=== PATIENT | male | born 1955 | race Caucasian/White ===

== ENCOUNTER 2020-01-31 13:05 | Inpatient (IN) | payer MEDICARE, MEDICAID, SELFPAY ==
[2020-01-31] VITALS (15 sets, daily range): BP systolic 92–140; BP diastolic 61–95; PULSE 59–73; RESP 15–22; TEMP 36.3–37; O2SAT 95–98; BMI 28.8
--- NOTE | ~2020-01-31 | CT_ITS ---
EXAMINATION: CTA brain carotid DATE: 01/31/2020 14:31 INDICATION: Cerebrovascular accident. TECHNIQUE: Computed tomographic angiography (CTA) of the head was performed with 100 mL Omnipaque-350 intravenous contrast. CTA of the neck was performed with intravenous contrast. Automated exposure co ntrol and iterative reconstruction technique were employed. The dose-length product was 1268.18 mGy-c m. Maximum intensity projection and volume rendered 3D-reconstructions were created by the technologi st on a separate workstation. COMPARISON: Head CT 01/31/2020 FINDINGS: HEAD CTA: There are old infarcts in the bilateral basal ganglia. There are scattered areas of low att enuation in the cerebral white matter. There is no intracranial hemorrhage, acute infarction, or abno rmal intracranial mass lesion. The ventricles are normal in size. There is a mucous retention cyst in right maxillary sinus. There is mild mucosal thickening in left maxillary sinus. There is extensive dental disease. The mastoid air cells are normal. The orbits are normal. Right vertebral artery is do minant. There is no significant stenosis of basilar artery or the posterior cerebral arteries. The po sterior communicating arteries are normal. There is no significant stenosis of the intracranial inter nal carotid arteries or anterior or middle cerebral arteries. Anterior communicating artery is normal . There is no aneurysm. NECK CTA: There is mild emphysema. There is mild scarring at the lung apices. There are no pathologic ally enlarged lymph nodes. There is no significant stenosis of the vertebral arteries. There is mild plaque in the proximal internal carotid arteries. There is 0% stenosis of the proximal right internal carotid artery relative to normal distal artery lumen diameter (NASCET criteria). There is 0% stenos is of the proximal left internal carotid artery relative to normal distal artery lumen diameter. Ther e is mild cervical spondylosis. IMPRESSION: 1. Old infarcts in the bilateral basal ganglia. 2. Moderate nonspecific cerebral white matter disease, which likely represents chronic small vessel i schemic disease. 3. No aneurysm or significant intracranial arterial stenosis. 4. 0% stenosis of the proximal internal carotid arteries relative to normal distal artery lumen diame ters (NASCET criteria). Reviewed, dictated and finalized at location A. IMPRESSION: 1. Old infarcts in the bilateral basal ganglia. 2. Moderate nonspecific cerebral white matter disease, which likely represents chronic small vessel ischemic disease. 3. No aneurysm or significant intracranial arterial stenosis. 4. 0% stenosis of the proximal internal carotid arteries relative to normal dis cassidy artery lumen diameters (NASCET criteria).
--- NOTE | ~2020-01-31 | US_ITS ---
EXAMINATION: US venous doppler [facility] DATE: 02/01/2020 15:04 INDICATION: Lower limb swelling and weakness TECHNIQUE: Grayscale ultrasound images without and with compression and Doppler ultrasound images of the bilateral lower extremity veins were obtained. COMPARISON: None. FINDINGS: The visualized portions of right common femoral vein, profunda (deep) femoral vein, femoral vein, pop liteal vein, posterior tibial veins, peroneal veins, gastrocnemius vein and greater saphenous vein ou tflow are patent. The visualized portions of left common femoral vein, profunda femoral vein, femoral vein, popliteal v ein, posterior tibial veins, peroneal veins, gastrocnemius vein and greater saphenous vein outflow ar e patent. IMPRESSION: 1. No deep venous thrombosis in either lower limb. Reviewed, dictated and finalized at location A.
--- NOTE | ~2020-01-31 | XR_ITS ---
EXAMINATION: XR barium swallow modified DATE: 02/01/2020 09:32 INDICATION: Dysphagia. TECHNIQUE: The patient was given barium-containing material of multiple consistencies to swallow by t china speech pathologist while I performed fluoroscopy. Fluoroscopy exposure time was 1.4 minutes. The n umber of fluoroscopy images saved to the PACS was 1. Dose-area product was 1.492 Gy-cm^2. FINDINGS: There was no laryngeal penetration or aspiration. IMPRESSION: 1. No laryngeal penetration or aspiration. 2. Please refer to the speech therapy report for recommendations. Reviewed, dictated and finalized at location A.
--- NOTE | ~2020-01-31 | MR_ITS ---
EXAMINATION: MR brain/brain stem wo con EXAM DATE: 01/31/2020 21:20 INDICATION: Encephalopathy. TECHNIQUE: Magnetic resonance imaging (MRI) of the brain/brain stem obtained without contrast. Sagitt al T1, axial diffusion, gradient echo (T2*), T1, T2, FLAIR sequences obtained. Correlation is made t o head CT same date. FINDINGS: There are no areas of restricted diffusion to suggest acute infarction. There is no acute hemorrhage seen on the T2*, a hemosiderin sensitive sequence. No intraparenchymal brain mass lesion. Bilateral basal ganglia old lacunar infarctions. There is mild to moderate periventricular and sub cortical T2/FLAIR signal hyperintensity, nonspecific but probably related to small vessel ischemic di sease (microangiopathy). There is mild prominence of the sulci and ventricles related to cerebral a trophy. There are no extra-axial collections. Flow voids are seen in the cerebral arteries on the T2-weighted sequences consistent with their expected patency. The orbits are unremarkable. Soft tis cecily is unremarkable. Right maxillary sinus mucous retention cyst. IMPRESSION: 1. Old basal ganglia lacunar infarctions. 2. Chronic age related findings. Reviewed, dictated and finalized at location A.
--- NOTE | ~2020-01-31 | XR_ITS ---
EXAMINATION: XR chest 1V DATE: 01/31/2020 14:23 INDICATION: Altered mental status. TECHNIQUE: A single frontal view of the chest was obtained. COMPARISON: None. FINDINGS: Calcified lung nodules and calcified hilar and mediastinal lymph nodes are consistent with old granulomatous disease. There are airspace opacities in right mid and lower lung zones and left lo wer lung zone. There is a small right pleural effusion. No pneumothorax. The heart size is normal. IMPRESSION: 1. Airspace opacities in right mid and lower lung zones and left lower lung zone, consistent with ate lectasis versus pneumonia. 2. Small right pleural effusion. Reviewed, dictated and finalized at location A. IMPRESSION: 1. Airspace opacities in right mid and lower lung zones and left lower lung zon e, consistent with atelectasis versus pneumonia. 2. Small right pleural effusion.
--- NOTE | ~2020-01-31 | CT_ITS ---
EXAMINATION: CT brain wo con DATE: 01/31/2020 13:10 INDICATION: Left hemiparesis. TECHNIQUE: Computed tomography (CT) of the head was performed without intravenous contrast. The mA wa s adjusted according to patient size. Iterative reconstruction technique was employed. The dose-lengt h product was 605.33 mGy-cm. COMPARISON: None FINDINGS: There are scattered areas of low attenuation in the cerebral white matter. There are old in farcts involving the bilateral basal ganglia. There is no intracranial hemorrhage, acute infarction, or abnormal intracranial mass lesion. The ventricles are normal in size. The orbits are normal. There is a mucous retention cyst in right maxillary sinus. The mastoid air cells are normal. There is exte nsive dental disease. There are 2 partially calcified masses in the left parietal scalp with the larg er measuring 14 mm, likely benign. IMPRESSION: 1. Old infarcts involving the bilateral basal ganglia. 2. Moderate nonspecific cerebral white matter disease, which likely represents chronic small vessel i schemic disease. Reviewed, dictated and finalized at location A. IMPRESSION: 1. Old infarcts involving the bilateral basal ganglia. 2. Moderate nonspecific cerebral white matter disease, which likely represents chronic small vessel ischemic disease.
--- NOTE | 2020-01-31 13:19 | ECG_ITS ---
Measurements Intervals Horatio Rate: 65 P: 30 IN: 200 QRS: -8 QRSD: 104 T: 27 QT: 400 QTc: 419 Interpretive Statements SINUS RHYTHM VENTRICULAR PREMATURE COMPLEXES EARLY PRECORDIAL R/S TRANSITION BORDERLINE ECG Electronically Signed On 01-31-2020 13:58:05 CDT by Nnamdi Summers D.O.
--- NOTE | 2020-01-31 13:22 | ED.NEUROSD ---
HPI - Neuro Symptoms/Deficit General Chief Complaint: Suspected CVA Stated Complaint: ?cva History of Present Illness HPI Narrative: History limited by mental status [facility]. He was reportedly last seen normal around 1230. At that time he was eating lunch. Someone came back in to check on him and found him altered. He is not following commands. He moves the bilateral upper extremities. Noted to have weakness in the LLE. He reportedly has a h/o previous ICH. Related Data Allergies Allergy/AdvReac Type Severity Reaction Status Date / Time No Known Allergies Allergy Unverified 01/31/20 13:24 Review of Systems Review of Systems: ROS unobtainable: Yes unobtainable due to mental status PMFSH Social History Social History Gender identity (if verbalized by the patient): Male Exam Const: General: alert Nutritional Appearance: well nourished HENMT: Head: normal to inspection Eyes: Pupils: Equal, round and reactive pupils present Resp: Effort & Inspection: normal respiratory effort Auscultation: clear to auscultation bilaterally Cardio: Rate: regular rate Rhythm: regular rhythm GI: GI Palp: Yes Soft to palpation Skin: General skin exam: normal color Neuro: Other: Eyes open. No gaze preference. Moves BUE spontaneously and in response to noxious sytimuli. No response with BLE. Not answering question or following commands. Course Vital Signs Vital signs: Vital Signs Temperature 37.0 C 01/31/20 13:15 Pulse Rate 73 01/31/20 13:15 Respiratory Rate 17 01/31/20 13:15 Blood Pressure 108/77 01/31/20 13:15 Pulse Oximetry 98 01/31/20 13:15 Temperature 37.0 C 01/31/20 13:15 Pulse Rate 63 01/31/20 14:29 Respiratory Rate 20 01/31/20 14:29 Blood Pressure 113/75 01/31/20 14:29 Pulse Oximetry 97 01/31/20 14:29 MDM - Neuro Symptoms/Deficit MDM Narrative Medical decision making narrative: His presentation is concerning for an acute neurological event such as a stroke. It is not typical in that he does not have any lateralizing symptoms. CT done to look for large vessel occlusion or possibly posterior circulation stroke. I think this is most likely 2/2 aspiration. He was known to be eating at onset. It was unwitnessed. He has infiltrates int the right middle and lower. Case discussed with Dr. Chavarria. Agrees with work-up up to this point. Recommends admission for MRI. Case discussed with Natalia. Accepted admission. Medical Records Attestation: I reviewed the patient's medical records. Lab Data Attestation: I reviewed the patient's lab results. Result diagrams: 01/31/20 13:29 01/31/20 13:29 Labs: Lab Results 01/31/20 01/31/20 01/31/20 Range/Units 13:17 13:29 13:29 WBC 5.4 (4.5-10.0) K/mm3 RBC 3.89 L (4.6-6.20) M/mm3 Hgb 12.1 L (14.0-18.0) g/dL Hct 36.5 L (42.0-52.0) % MCV 93.8 (80-100) fl MCH 31.1 (26-34) pg MCHC 33.2 (32-36) g/dl RDW 13.8 (11.5-14.5) % Plt Count 225 (150-375) k/mm3 MPV 11.2 H (7.4-10.4) fl Immature Gran % (Auto) 0.2 (0-0.5) % Neut % (Auto) 65.3 (45.5-73.1) % Lymph % (Auto) 19.7 (18.3-44.2) % [place] % (Auto) 10.9 H (2.6-8.5) % Eos % (Auto) 3.5 (0-4.4) % Baso % (Auto) 0.4 (0.2-1.2) % Lymph # (Auto) 1.07 (0.9-3.2) K/mm3 [place] # (Auto) 0.6 (0.1-0.6) K/mm3 Eos # (Auto) 0.2 (0-0.3) K/mm3 Baso # (Auto) 0.0 (0.0-0.1) K/mm3 Abs Immat Gran (auto) 0.01 (0.00-0.031) K/mm3 Absolute Neuts (auto) 3.5 (1.3-6.7) K/mm3 Absolute Nucleated RBC 0.0 (0.0-0.012) K/mm3 Nucleated RBC % 0.0 (0.0-0.2) % PT 12.7 (11.1-14.7) Seconds INR 1.0 APTT 29.3 (22.3-36.8) SECONDS Sodium (137-145) mmol/L Potassium (3.4-5.0) mmol/L Chloride (98-107) mmol/L Carbon Dioxide (22-30) mmol/L BUN (9-20) mg/dL Creatinine (0.7-1.3) mg/dL Estim Creat Clear Calc ml/min Estimated GFR (59
[2020-01-31 13:28] LABS: Glucose Point of Care 166 (65-105)
[2020-01-31 13:46] LABS: Basophils Percent Auto 0.4 % (0.2-1.2); Eosinophils Absolute Auto 0.2 K/mm3 (0-0.3); Eosinophils Percent Auto 3.5 % (0-4.4); Hematocrit 36.5 % (42.0-52.0); Hemoglobin 12.1 g/dL (14.0-18.0); Immature Granulocyte Absolute 0.01 K/mm3 (0.00-0.031); Immature Granulocyte Percent A 0.2 % (0-0.5); Lymphocytes Absolute Auto 1.07 K/mm3 (0.9-3.2); Lymphocytes Percent Auto 19.7 % (18.3-44.2); Mean Corpuscular HGB Conc 33.2 g/dl (32-36); Mean Corpuscular Hemoglobin 31.1 pg (26-34); Mean Corpuscular Volume 93.8 fl (80-100); Mean Platelet Volume 11.2 fl (7.4-10.4); Monocytes Absolute Auto 0.6 K/mm3 (0.1-0.6); Monocytes Percent Auto 10.9 % (2.6-8.5); Neutrophils Absolute Auto 3.5 K/mm3 (1.3-6.7); Neutrophils Percent Auto 65.3 % (45.5-73.1); Platelet Count Result 225 k/mm3 (150-375); Red Blood Count 3.89 M/mm3 (4.6-6.20); Red Cell Distribution Width 13.8 % (11.5-14.5); White Blood Count 5.4 K/mm3 (4.5-10.0)
[2020-01-31 13:48] LABS: Alveolar/Arterial O2 Gradient 24.7 mmHg; Base Excess ABG -0.7 mEq/l (+/-2.0); Fractional Inspired Oxygen 21 %; HCO3 ABG 23.6 mEq/l (22.0-26.0); Oxygen Content ABG 16.3 %vol (16.0-22.0); Oxyhemoglobin 93.7 % THb (90.0-100.0); PCO2 ABG 37.8 mmHg (35.0-45.0); PO2 ABG 79.8 mmHg (80.0-100.0); Total Hemoglobin 12.3 g/dL (12.0-18.0); pH ABG 7.413 (7.350-7.450)
[2020-01-31 13:49] LABS: Device ROOM AIR; Site Drawn LEFT BRACHIAL
[2020-01-31 13:56] LABS: Prothrombin Time 12.7 Seconds (11.1-14.7)
--- NOTE | 2020-01-31 13:56 | PC.NURSE ---
Addendum entered by German Rai RN 01/31/20 13:57: REGINA MAZARIEGOS PT. Original Note: REGINA MAZARIEGOS PT AT THIS TIME.
[2020-01-31 13:57] LABS: Ammonia < 9 umol/L (9-30); Lactic Acid Reflex 1.4 mmol/L (0.7-2.1); Partial Thromboplastin Time 29.3 SECONDS (22.3-36.8)
[2020-01-31 13:58] LABS: Alanine Aminotransferase 19 U/L (4-50); Albumin Level 4.1 g/dL (3.5-5.1); Alkaline Phosphatase 86 U/L (38-126); Aspartate Amino Transferase 18 U/L (17-59); Bilirubin,Total 0.3 mg/dL (0.2-1.3); Blood Urea Nitrogen 28 mg/dL (9-20); Calcium 8.6 mg/dL (8.4-10.2); Carbon Dioxide 27 mmol/L (22-30); Chloride 107 mmol/L (98-107); Estimated CRCL calculation 46 ml/min; Estimated Glomerular Filt Rate 36; Glucose 156 mg/dL (75-110); Potassium 3.3 mmol/L (3.4-5.0); Sodium 143 mmol/L (137-145)
[2020-01-31 14:10] LABS: Troponin I < 0.012 ng/mL (0.000-0.034)
[2020-01-31 14:52] LABS: Add Urine Microscopic? NO; Appearance Urine Clear (Clear); Bilirubin Urine Negative (Negative); Blood Urine Negative (Negative); Color Urine Yellow (Yellow); Glucose Urine UA Negative (Negative); Ketones Urine Negative (Negative); Leukocyte Esterase Ur Negative LEU/UL (Negative); Mucus Urine Rare /lpf; Nitrate Urine Negative (Negative); Protein Urine Negative (Negative); RBC Urine 0-2 /hpf (0-2); Specific Grav Ur 1.018 (1.001-1.035); Squamous Epithelial Cell Urine Rare /hpf (Few); Urobilinogen Urine Negative mg/dL (<2.0); WBC Urine 0-3 /hpf
--- NOTE | 2020-01-31 15:49 | PC.NURSE ---
spoke with staff at skilled nursing, they have been informed that pt is being admitted to the hospital.
[2020-01-31] MEDS: AMPICILLIN SODIUM/SULBACTAM 3 GM in SODIUM CHLORIDE 0.9% IV 100 ML IVPB (15:55)
[2020-01-31] MEDS: LACTATED RINGERS 1,000 ML 125 ML IV CONT (17:41)
--- NOTE | 2020-01-31 18:02 | ADMGEN ---
This patient, Stefan Stanton, was admitted to Medical Room 253-01. Patient/family oriented to hospital policies and general routines including ID bracelet, bed and alarms, visiting hours, pain management, procedures, bathroom and other care routines, personal items, smoking policy, room service/diet, and visiting hours. Valuables list has been completed. Information on how to activate the Rapid Response Team has been discussed. Patient/Family are encouraged to report perceived risks to care and to ask questions if they do not understand what they are told or what they should do.
--- NOTE | 2020-01-31 20:39 | PM.IMHP ---
H&P: HPI History of Present Illness Chief complaint: Suspected aspiration pneumonia/encephalopathy Narrative: Date and time of patient contact: 01/31/2020 at 10:30 p.m. Stefan Stanton is a 64 year old male with a past medical history of prior CVA, renal failure, hypertension, and diabetes who presented to the ER from [facility] via EMS for suspected CVA. Per ER documentation the patient was last seen normal while eating lunch at 12:30 p.m.. When the skilled nursing staff went back to check on him he was unable to roll picker his fork. The patient usually ambulates independently but the patient was not using his left leg at all and in fact had weakness and bilateral lower extremity. The skilled nursing staff reported that the patient would not follow any commands. He was unable to keep either of his arms raised when he was in triage but had equal director of infection control strength. By the time the ER physician evaluated the patient he only had weakness in his left lower extremity. At the time of my evaluation the patient could keep both arms out straight against resistance. He could lift both legs from the bed against resistance. His speech was slow and deliberate but clear. His lungs were clear to auscultation and he denies any cough or history of aspiration. The patient was sat upright in bed and was fed spoonful of putting and given a sip of juice without evidence of aspiration. The patient seemed to have good oral control of these consistencies. He denies any history of recent cough congestion fever or chills. The patient was alert and oriented x3-4 but was unsure why he was brought into the ER. He seems to have some mild difficulty with short-term memory. He also did the patient times he hold his fork differently than most people and he thought that may be the nursing staff thought he was weak due to this fact. The patient will not smile to allow assessment for facial nerves. His speech is delayed he is frustrated that he was brought to the hospital. Review of Systems Review of Systems: Narrative: 12 systems were reviewed with pertinent positives and negatives per HPI. Except as documented in the HPI, all other systems were reviewed and are negative. [facility] Past Medical History Medical History Cerebral hemorrhage Intercranial hemorrhage CHF (congestive heart failure) Unspecified type Chronic kidney disease Stage III CVA (cerebral vascular accident) Bilateral basal ganglia infarcts noted on CT Depression Diabetes mellitus Dyslipidemia Essential hypertension GERD (gastroesophageal reflux disease) Surgical History Surgical History No significant past surgical history Family History Family History Unknown Family history unknown Patient is unable to provide details due to his memory loss. Social History Social History Social History: Code status: Full code The patient does not have a durable power of edge cutting machine operator or surrogate decision maker. Smoking packs per day: 1 Smoking cigarettes per day: 20.0 Years smoked: 44 Smoking pack-years: 44.00 Smoking status: Former smoker Additional smoking assessment comments: He smoked 1 pack of cigarettes per day from the age of [age]. Alcohol intake: former Alcohol use details: He used to drink alcohol on occasion. He denies any history of alcoholism. Substance use: unknown Living arrangements: skilled nursing Additional living arrangements comments: Patient is a resident at [facility]. He states that he has been at the skilled nursing for 3 years. He reports that he has been for about 4 years. He denies having any children. Gender identity (if verbalized by the patient): Male Spiritual care concerns: No Meds Home Me
[2020-01-31] MEDS: AMPICILLIN SULB 3 GM/NS 100 ML 3 GM/100 ML VIAL IVPB (22:21)
[2020-01-31] MEDS: ARIPIPRAZOLE 5 MG TABLET 15 MG PO (22:48)
[2020-01-31] MEDS: hydrALAZINE HCL 50 MG TABLET 100 MG PO (22:48)
[2020-01-31] MEDS: ATORVASTATIN 20 MG TABLET PO (22:48)
[2020-01-31] MEDS: carvediloL 25 MG TABLET PO (22:49)
[2020-01-31] MEDS: MIRTAZAPINE 15 MG TABLET PO (22:49)
[2020-01-31] MEDS: POTASSIUM CHLORIDE 20 MEQ TABLET PO (22:52)
[2020-01-31] MEDS: CLONIDINE HCL 0.1 MG TABLET PO (22:52)
[2020-02-01] VITALS (8 sets, daily range): BP systolic 105–124; BP diastolic 65–69; PULSE 59–76; RESP 19–20; TEMP 36.5–37; O2SAT 94–98
--- NOTE | 2020-02-01 | PC.NURSE ---
pm meds held until Dr. Mauro can evaluate. Meds then given after swallow eval.
[2020-02-01] MEDS: LACTATED RINGERS 1,000 ML 125 ML IV CONT (03:42)
[2020-02-01 05:25] LABS: Hematocrit 35.8 % (42.0-52.0); Hemoglobin 11.8 g/dL (14.0-18.0); Mean Corpuscular Hemoglobin 30.7 pg (26-34); Mean Corpuscular Volume 93.2 fl (80-100); Mean Platelet Volume 10.9 fl (7.4-10.4); Platelet Count Result 219 k/mm3 (150-375); Red Blood Count 3.84 M/mm3 (4.6-6.20); Red Cell Distribution Width 13.7 % (11.5-14.5); White Blood Count 5.8 K/mm3 (4.5-10.0)
[2020-02-01] MEDS: AMPICILLIN SULB 3 GM/NS 100 ML 3 GM/100 ML VIAL IVPB ×4 (05:41→23:35)
[2020-02-01 05:45] LABS: Blood Urea Nitrogen 29 mg/dL (9-20); Calcium 8.8 mg/dL (8.4-10.2); Carbon Dioxide 30 mmol/L (22-30); Chloride 108 mmol/L (98-107); Estimated CRCL calculation 46 ml/min; Estimated Glomerular Filt Rate 38; Glucose 84 mg/dL (75-110); Potassium 3.1 mmol/L (3.4-5.0); Sodium 143 mmol/L (137-145)
[2020-02-01] MEDS: hydrALAZINE HCL 50 MG TABLET 100 MG PO ×3 (05:52→20:57)
[2020-02-01] MEDS: hydroCHLOROthiazide 25 MG TABLET PO (08:58)
[2020-02-01] MEDS: POTASSIUM CHLORIDE 20 MEQ TABLET PO ×3 (08:58→20:57)
[2020-02-01] MEDS: FAMOTIDINE 20 MG TABLET PO (08:58)
[2020-02-01] MEDS: AMLODIPINE BESYLATE 5 MG TABLET 10 MG PO (08:59)
[2020-02-01] MEDS: carvediloL 25 MG TABLET PO ×2 (08:59→20:57)
[2020-02-01] MEDS: SERTRALINE HCL 50 MG TABLET 200 MG PO (08:59)
--- NOTE | 2020-02-01 09:02 | PC.NURSE ---
Call to pharmacy to request 0900 clonidine be sent to floor for administration.
[2020-02-01] MEDS: CLONIDINE HCL 0.1 MG TABLET PO ×2 (09:48→20:57)
--- NOTE | 2020-02-01 10:50 | PM.IMPN ---
Progress Note: A&P Assessment and Plan (1) Lower extremity weakness: Qualifiers: Laterality: unspecified laterality Qualified Code(s): R29.898 - Other symptoms and signs involving the musculoskeletal system Code(s): R29.898 - Other symptoms and signs involving the musculoskeletal system Status: Acute Assessment and Plan: Patient with history of prior CVA with intracranial hemorrhage presents due to lower extremity weakness and difficulty walking at the snf, difficulty using a fork. CTA head/neck and MRI brain yesterday showed old basal ganglia CVA. Suspect his symptoms may be related to his old CVA vs. new TIA? Will obtain venous dopplers to rule out DVT. No back pain, paresthesia, bowel or bladder dysfunction. Neurology consulted - appreciate recommendations. PT/OT appreciated. Long-term resident at [facility]. COVID screen required for discharge is ordered today. Anticipate possible discharge tomorrow back to [facility] if he does okay with therapy. (2) CVA (cerebral vascular accident): Qualifiers: CVA mechanism: other Qualified Code(s): I63.89 - Other cerebral infarction Code(s): I63.9 - Cerebral infarction, unspecified Status: Acute Assessment and Plan: Patient has history of prior basal ganglia CVA. See above. His new symptoms may be related to same or TIA. (3) Abnormal chest x-ray: Code(s): R93.89 - Abnormal findings on diagnostic imaging of other specified body structures Status: Acute Assessment and Plan: CXR consistent with atelectasis versus pneumonia. No leukocytosis, no fever, no respiratory distress or cough making pneumonia less likely. Given his decreased responsiveness at [facility], he was started on Unasyn for potential aspiration. Modified barium swallow this morning showed no aspiration; will await further recommendations from speech therapy and plan to stop Unasyn if no aspiration was suspected from . Suspect atelectasis; encourage incentive spirometry, increase activity. (4) Essential hypertension: Code(s): I10 - Essential (primary) hypertension Status: Acute Assessment and Plan: Last 124/65; continue his home antihypertensive regimen and monitor BP. (5) Chronic kidney disease: Qualifiers: Chronic kidney disease stage: stage 3 (moderate) Qualified Code(s): N18.3 - Chronic kidney disease, stage 3 (moderate) Code(s): N18.9 - Chronic kidney disease, unspecified Status: Acute Assessment and Plan: Unsure of baseline; continue LR for now since BUN is a little elevated and monitor renal function. Subjective Date/time seen: 02/01/20 10:30 Interval history: Mr. Stanton is a 64yo M with history of previous CVA brought to the hospital when [facility] staff had concerns for another CVA. It is reported that staff noticed he was unable to use a fork properly at lunch and then was having some trouble with left leg weakness. Mr. Stanton tells me he feels well this morning but is hungry. He thinks his legs still feel weak today but unsure. He denies leg numbness, tingling, or pain to palpation. Denies back pain or bowel/bladder incontinence. Denies speech or vision changes, dizziness, or headache. No chest pain, shortness of breath, palpitations, or coughing. He is right handed. Review of Systems Review of Systems: Narrative: Twelve systems were reviewed with pertinent positives and negatives as per HPI. Exam Narrative: Exam Narrative: General: Male resting comfortably in bed in no acute distress. Neuro: No focal neurological deficits appreciated. Speech is clear. Affect is flat. Dairy Inspector strengths feel equal bilaterally. Lower extremity strength feels somewhat decreased but symmetrical on both sides. HEENT: Normocephalic, EOMI, oral mucosa tacky, tongue i
[2020-02-01] MEDS: LACTATED RINGERS 1,000 ML 100 ML IV CONT ×2 (12:33→23:35)
--- NOTE | 2020-02-01 13:23 | PCSTNOTE ---
Please refer to the Modified Barium Swallow Evaluation in the EMR.
--- NOTE | 2020-02-01 13:59 | CONS_ITS ---
DATE OF CONSULTATION: 02/01/2020 HISTORY OF PRESENT ILLNESS: A 64-year-old right-handed male has been admitted to [facility] for the complaint of the possible pneumonia with encephalopathy in addition to ongoing history of: 1. Previous cerebrovascular accident. 2. Renal failure. 3. Hypertension. 4. Diabetes mellitus. He was sent to the ER from the [facility] via EMS for the suspected cerebrovascular accident. He was last seen normal while eating lunch at 12:30 p.m. and the intermediate staff went back to check on him. He was unable to pickup his fork. He usually ambulates independently, but the patient was not using his left lower extremity at all. In fact, he was noted to have the weakness of both lower extremities, was also not following any verbal commands, was unable to raise his arms, but had equal u.s. commissioner. By the time the ER physician evaluated the patient, he only had weakness in the left lower extremity. By the time the hospital saw the patient, his both upper extremity were out straight against resistance. He could lift both lower extremities against resistance. He speech was slow, but clear. His lungs were clear to auscultation. The patient was able to sit in the bed and also in the chair without any problem. He had a good oral control of the consistencies. He has had no history of any other associated symptomatologies. The patient does have history of: 1. Cerebral hemorrhage in the past. 2. Congestive heart failure. 3. Chronic kidney disease. 4. Cerebrovascular accident. 5. Depression. 6. Diabetes mellitus. 7. Dyslipidemia. 8. Essential hypertension. 9. GERD. He carries a full code status. He used to smoke cigarettes 20 per day. His smoking pack years 44, but at present is a former smoker and former drinker also. At present, he is living in the intermediate. MEDICATIONS: He has been taking multiple medications, which were listed: 1. Amlodipine 10 mg daily. 2. Aripiprazole 50 mg h.s. 3. Atorvastatin 20 mg h.s. 4. Carvedilol 25 twice a day. 5. Clonidine 0.1 mg twice a day. 6. Ergocalciferol 1250 mcg monthly. 7. Famotidine 20 mg daily. 8. Furosemide 20 mg 2 times a week. 9. Hydralazine 100 mg 3 times a day. 10. Hydrochlorothiazide 25 mg daily. 11. Mirtazapine 15 mg h.s. 12. Zofran 8 mg q.6 hours p.r.n. 13. Potassium chloride 20 mEq twice a day. 14. Sertraline 200 mg p.o. daily. PHYSICAL EXAMINATION: VITAL SIGNS: Evaluation up until now revealed him to have pulse of 73, respirations 17, blood pressure 108/77, pulse 98, pulse ox 98%. HEENT: Head normocephalic with no cranial bruit. Ear, nose, throat examination normal. NECK: Supple with no cervical bruit. No thyromegaly. No lymphadenopathy. HEART: Regular with no murmur. LUNGS: Clear to auscultation with no evidence of any rhonchi or crepitation. He was able to sit in the chair, eating his lunch. NEUROLOGIC: His speech was not dysphasic, no dysarthric, though he was very slow in responding, but he followed instructions very well. Pupils were round regular. Sherman of vision full. Extraocular movements full. Face symmetrical. Tongue midline. Motor examination revealed his strength 4/5, both lower extremities. Reflexes sluggish. Plantars were downgoing. There was no evidence of gross cerebellar deficit on olnope-om-wmtz-to-finger. LABORATORY DATA: CBC revealed WBC 5.4, hemoglobin 12.1, platelet count of 225. Basic metabolic panel normal. Lactic acid initially was 1.4. His hepatic enzymes were also normal. Serum ammonia level initially was less than 9. UA is negative. Repeat basic metabolic panel revealed a potassium only 3.3, glucose 156, creatinine 1.9. Troponin was less than 0.012. Hepatic enzymes normal. The CT scan of the head revealed him to have bilatera
[2020-02-01] MEDS: ARIPIPRAZOLE 5 MG TABLET 15 MG PO (20:56)
[2020-02-01] MEDS: ATORVASTATIN 20 MG TABLET PO (20:57)
[2020-02-01] MEDS: MIRTAZAPINE 15 MG TABLET PO (20:58)
[2020-02-02] VITALS: PULSE 64
[2020-02-02 04:00] VITALS: BP 153/75; PULSE 61; PULSE 64; RESP 18; TEMP 36.6; O2SAT 97
[2020-02-02 05:27] LABS: Blood Urea Nitrogen 27 mg/dL (9-20); Calcium 8.5 mg/dL (8.4-10.2); Carbon Dioxide 29 mmol/L (22-30); Chloride 105 mmol/L (98-107); Estimated CRCL calculation 46 ml/min; Estimated Glomerular Filt Rate 38; Glucose 93 mg/dL (75-110); Magnesium 1.9 mg/dL (1.6-2.3); Phosphorus 3.7 mg/dL (2.5-4.5); Potassium 3.2 mmol/L (3.4-5.0); Sodium 141 mmol/L (137-145)
[2020-02-02] MEDS: hydrALAZINE HCL 50 MG TABLET 100 MG PO ×2 (05:31→15:21)
[2020-02-02] MEDS: AMPICILLIN SULB 3 GM/NS 100 ML 3 GM/100 ML VIAL IVPB (05:31)
[2020-02-02 08:00] VITALS: PULSE 56
[2020-02-02] MEDS: AMLODIPINE BESYLATE 5 MG TABLET 10 MG PO (08:05)
[2020-02-02 08:06] VITALS: PULSE 65
[2020-02-02] MEDS: carvediloL 25 MG TABLET PO (08:06)
[2020-02-02] MEDS: ASPIRIN 81 MG ENTERIC TABLET PO (08:06)
[2020-02-02] MEDS: SERTRALINE HCL 50 MG TABLET 200 MG PO (08:07)
[2020-02-02] MEDS: POTASSIUM CHLORIDE 20 MEQ TABLET PO (08:07)
[2020-02-02] MEDS: CLONIDINE HCL 0.1 MG TABLET PO (08:08)
[2020-02-02] MEDS: FAMOTIDINE 20 MG TABLET PO (08:09)
[2020-02-02] MEDS: hydroCHLOROthiazide 25 MG TABLET PO (08:09)
[2020-02-02 12:00] VITALS: PULSE 52
[2020-02-02 12:55] LABS: SARS-CoV-2 RNA PCR Negative
--- NOTE | 2020-02-02 13:41 | PM.DS ---
DS: Admitting Diagnosis Admitting Diagnosis Admitting Diagnosis: Encephalopathy, unspecified DS: Discharge Diagnosis Discharge Diagnosis (1) Lower extremity weakness: Qualifiers: Laterality: unspecified laterality Qualified Code(s): R29.898 - Other symptoms and signs involving the musculoskeletal system Code(s): R29.898 - Other symptoms and signs involving the musculoskeletal system Status: Acute Assessment and Plan: Date 02/02/20 Mr. Stanton is a 64 yo M with history of prior CVA with intracranial hemorrhage, chronic kidney disease, and hypertension presented from the senior care to the ED for evaluation of altered mental status and lower extremity weakness. Reports show that staff in the senior care noted he was unable to greens picker his fork during lunch and described that he was unable to walk, not using his left leg at all. CTA head and neck as well as MRI brain were obtained which showed old basal ganglia CVA without evidence of new infarct. His symptoms may have been related to residual deficits from prior CVA vs. new TIA. Venous Dopplers were negative for DVT. Neurology was consulted and he was evaluated by Dr. Chavarria. He was restarted on aspirin therapy. COVID screening was obtained prior to discharge which was negative. Patient walked 365 ft in the hallway standby assistance with wheeled walker with physical therapy. He was feeling well and was hemodynamically stable for discharge 02/02/2020 to be seen by primary care or senior care provider within 1 week. Consultations: -- Neurology - Dr Chavarria. (2) CVA (cerebral vascular accident): Qualifiers: CVA mechanism: other Qualified Code(s): I63.89 - Other cerebral infarction Code(s): I63.9 - Cerebral infarction, unspecified Status: Acute Assessment and Plan: Patient has history of prior basal ganglia CVA. See above. His new symptoms may be related to same or TIA. (3) Abnormal chest x-ray: Code(s): R93.89 - Abnormal findings on diagnostic imaging of other specified body structures Status: Acute Assessment and Plan: Suspect atelectasis; encourage incentive spirometry, increase activity. Speech therapy described no signs or symptoms of aspiration on modified barium swallow. (4) Essential hypertension: Code(s): I10 - Essential (primary) hypertension Status: Acute Assessment and Plan: Stable on his home antihypertensive regimen. Continue his home meds. (5) Chronic kidney disease: Qualifiers: Chronic kidney disease stage: stage 3 (moderate) Qualified Code(s): N18.3 - Chronic kidney disease, stage 3 (moderate) Code(s): N18.9 - Chronic kidney disease, unspecified Status: Acute Assessment and Plan: Unsure of baseline; maintained on IV hydration here. DS: Summary Time Spent with Patient Time attestation: Total time spent providing and/or coordinating discharge services: 40 min Exam Narrative: Exam Narrative: Last Vital Signs Temp 97.6 F 02/02/20 14:00 Pulse 58 L 02/02/20 14:00 Resp 16 02/02/20 14:00 BP 117/71 02/02/20 14:00 Pulse Ox 98 02/02/20 14:00 General: Male resting comfortably in bed in no acute distress. Neuro: No focal neurological deficits appreciated. Speech is clear. Affect is flat. Insurance Application Investigator strengths feel equal bilaterally. Lower extremity strength feels somewhat decreased but symmetrical on both sides. HEENT: Normocephalic, EOMI, oral mucosa tacky, tongue is midline. Cardiovascular: Rate and rhythm are regular. Respiratory: Decreased breath sounds TANYA with poor effort. Non-labored breathing. Tolerating room air. Abdomen: S
[2020-02-02 14:00] VITALS: BP 117/71; PULSE 58; RESP 16; TEMP 36.4; O2SAT 98
--- NOTE | 2020-02-02 15:04 | PC.NURSE ---
Report called to ANNE Deshpande at [facility]. All questions and concerns answered at this time.
== END 2020-02-02 16:19 | DRG 57 ==
LOC: ANHED 15:39 → ANH2MED 18:07
PROVIDERS: Internal Medicine; Physician Assistant; Admitting Provider Family Medicine; Emergency Provider Emergency Medicine; Visit Provider Internal Medicine
DX: I69.298 Other sequelae of other nontraumatic intracranial hemorrhage (principal); G93.40 Encephalopathy, unspecified; G45.9 Transient cerebral ischemic attack, unspecified; J98.11 Atelectasis; I13.0 Hypertensive heart and chronic kidney disease with heart failure and stage 1 through stage 4 chronic kidney disease, or unspecified chronic kidney disease; G93.49 Other encephalopathy; Z11.59 Encounter for screening for other viral diseases; E87.6 Hypokalemia; E11.22 Type 2 diabetes mellitus with diabetic chronic kidney disease; N18.3 Chronic kidney disease, stage 3 (moderate); I50.9 Heart failure, unspecified; E78.5 Hyperlipidemia, unspecified; K21.9 Gastro-esophageal reflux disease without esophagitis; F32.9 Major depressive disorder, single episode, unspecified; Z87.891 Personal history of nicotine dependence; R29.898 Other symptoms and signs involving the musculoskeletal system
CPT/HCPCS: 36415; 36600; 51701; 70450; 70496; 70498; 70551; 71045; 80048; 80053; 81003; 82140; 82805; 83605; 83735; 84100; 84443; 84484; 85025; 85027; 85610; 85730; 87040; 87635; 92611; 93005; 93970; 96374; 97110; 97116; 97161; 97165; 99285; A9270; C9803; J0295; J7120; Q9967; U0003

== ENCOUNTER 2020-10-29 16:26 | Observation (INO) | payer MEDICARE, MEDICAID, SELFPAY ==
[2020-10-29] VITALS (14 sets, daily range): BP systolic 128–155; BP diastolic 79–97; PULSE 60–71; RESP 13–28; TEMP 36.3–37.1; O2SAT 96–100; BMI 30.3
--- NOTE | ~2020-10-29 | MR_ITS ---
EXAMINATION: MR lumbar spine wo con DATE: 10/30/2020 17:57 INDICATION: Leg weakness. TECHNIQUE: Magnetic resonance imaging (MRI) of the lumbar spine was performed without intravenous con trast. Sequences included sagittal T2-weighted FSE, sagittal T2-weighted FS FSE, sagittal T1-weighted FSE, and axial T2-weighted FSE. COMPARISON: Lumbar spine CT 10/29/2020 FINDINGS: Bone alignment is normal. Vertebral body heights are normal. There is mildly decreased disc height at L3-L4. There are hemangiomas in L1 and L2 vertebral bodies. The distal spinal cord signal intensity is normal. The conus medullaris is at L1. Partially visualized is a 5.4 cm cyst in right ki dney. The following disc levels are specifically discussed: L1-L2: The disc does not extend beyond the endplate margin. There is mild bilateral facet joint osteo arthritis. There is no neural foraminal stenosis. There is no central canal stenosis. L2-L3: The disc does not extend beyond the endplate margin. There is mild bilateral facet joint osteo arthritis. There is no neural foraminal stenosis. There is no central canal stenosis. L3-L4: The disc is bulging and has an annular fissure. There is severe right and moderate left facet joint osteoarthritis. There is mild bilateral neural foraminal stenosis. There is mild central canal stenosis. L4-L5: The disc is bulging. There is severe bilateral facet joint osteoarthritis. There is mild bilat eral neural foraminal stenosis. There is mild central canal stenosis. L5-S1: The disc is bulging. There is severe bilateral facet joint osteoarthritis. There is mild bilat eral neural foraminal stenosis. There is mild central canal stenosis. IMPRESSION: 1. Mild lumbar spondylosis. Reviewed, dictated and finalized at location A. CIATE PROFESSOR OF MANAGEMENT IMPRESSION: 1. Mild lumbar spondylosis.
--- NOTE | ~2020-10-29 | CT_ITS ---
EXAMINATION: CT thoracic lumbar wo con DATE: 10/29/2020 21:17 INDICATION: Leg weakness TECHNIQUE: Computed tomography (CT) of the thoracic and lumbar spine was performed without intravenou s contrast. The dose-length product (DLP) was 2316.12 mGy-cm. Iterative reconstruction was used. COMPARISON: None FINDINGS: Thoracic spine: The vertebral body heights and alignment are normal. There is mild loss of interverte bral disc space height throughout the thoracic spine. No fracture is identified. The prevertebral sof t tissues are normal. A 1.9 cm left adrenal adenoma is incidentally noted. Lumbar spine: The vertebral body heights and alignment are normal. There is mild loss of intervertebr al disc space height at L3-4. No fracture is identified. The prevertebral soft tissues are normal. Th ere is a 5.2 cm cyst of the right kidney. IMPRESSION: 1. Mild thoracic and lumbar spondylosis without acute findings. Reviewed, dictated and finalized at location A. K PULLER
--- NOTE | ~2020-10-29 | MR_ITS ---
EXAMINATION: MR thoracic spine wo con EXAM DATE: 10/30/2020 17:35 INDICATION: Unable to ambulate . TECHNIQUE: Multi-sequential, multiplanar MR images of the thoracic spine were obtained without contra st. Sagittal T1, T2, T2 fat saturation, axial T2 weighted images reviewed. Correlation is made to CT thoracic spine 10/29/2020. FINDINGS: There is mild mid thoracic disc disease with small endplate osteophytes. The thoracic centr al canal and neural foramen are widely patent. Mild thoracic facet arthropathy. The spinal cord signa l intensity and intrinsic morphology is normal. There are no suspicious marrow signal abnormalities. Paraspinal soft tissue is unremarkable. IMPRESSION: Mild thoracic spondylosis. No stenosis or cord signal abnormality. Reviewed, dictated and finalized at location A. IC DEFENDER
--- NOTE | ~2020-10-29 | MR_ITS ---
EXAMINATION: MR cervical spine wo con DATE: 10/30/2020 17:29 INDICATION: Leg weakness. TECHNIQUE: Magnetic resonance imaging (MRI) of the cervical spine was performed without intravenous c ontrast. Sequences included sagittal T2-weighted FSE, sagittal STIR FSE, sagittal T1-weighted FSE, ax ial MERGE, and axial T2-weighted FSE. COMPARISON: Neck CT 01/31/2020 FINDINGS: There is kyphosis of lower cervical spine. Vertebral body heights and intervertebral disc h eights are normal. There is dilatation of the nerve roots sleeves bilaterally from C5-C6 through T1-T 2. The spinal cord signal intensity is normal. The following disc levels are specifically discussed: C2-C3: The disc does not extend beyond the endplate margin. There is severe bilateral uncovertebral j oint osteoarthritis. There is no facet joint osteoarthritis. There is no neural foraminal stenosis. T here is no central canal stenosis. C3-C4: The disc does not extend beyond the endplate margin. There is moderate right and mild left unc overtebral joint osteoarthritis. There is severe bilateral facet joint osteoarthritis. There is mild right neural foraminal stenosis. There is no central canal stenosis. C4-C5: The disc does not extend beyond the endplate margin. There is no uncovertebral joint osteoarth ritis. There is severe bilateral facet joint osteoarthritis. There is mild bilateral neural foraminal stenosis. There is no central canal stenosis. C5-C6: The disc does not extend beyond the endplate margin. There is mild bilateral uncovertebral kamari nt osteoarthritis. There is moderate right facet joint osteoarthritis. There is mild right neural for aminal stenosis. There is no central canal stenosis. C6-C7: The disc does not extend beyond the endplate margin. There is no uncovertebral joint osteoarth ritis. There is mild bilateral facet joint osteoarthritis. There is no neural foraminal stenosis. The re is no central canal stenosis. C7-T1: The disc does not extend beyond the endplate margin. There is no uncovertebral joint osteoarth ritis. There is mild bilateral facet joint osteoarthritis. There is no neural foraminal stenosis. The re is no central canal stenosis. IMPRESSION: 1. Mild cervical spondylosis. Reviewed, dictated and finalized at location A. CTOR OF TAX SERVICES
--- NOTE | ~2020-10-29 | CT_ITS ---
EXAMINATION: CT brain wo con INDICATION: Weakness COMPARISON: None TECHNIQUE: Standard unenhanced head CT. The dose-length product (DLP) was 681.00 mGy-cm. The mA was a djusted according to patient size. Iterative reconstruction technique was employed. FINDINGS: There is no acute intraparenchymal hemorrhage. No evidence of mass lesion. No evidence of a cute infarction. Again noted are old infarcts in the bilateral basal ganglia. There is mild periventr icular and subcortical hypodensity probably related to small vessel ischemic disease. There is mild p rominence of the sulci and ventricles related to cerebral atrophy. Intracranial calcified cerebral at herosclerosis is noted. There are no extra-axial collections. There is no mass effect or midline shif t. The orbits and soft tissues are unremarkable. There is mild mucosal thickening of the paranasal s inuses. IMPRESSION: 1. Old infarcts of the basal ganglia without acute intracranial abnormality. 2. Age related findings. Reviewed, dictated and finalized at location A. ATOR
--- NOTE | ~2020-10-29 | MR_ITS ---
EXAMINATION: MR brain/brain stem wo con DATE: 10/30/2020 09:45 INDICATION: Extremity weakness. TECHNIQUE: Magnetic resonance imaging (MRI) of the brain and brainstem was performed without intraven ous contrast. Sequences included sagittal and axial T1-weighted FSE, axial diffusion-weighted FS EPI, axial T2*-weighted GRE, axial T2-weighted FLAIR Propeller, and axial T2-weighted Propeller. Apparent diffusion coefficient (ADC) maps were created. COMPARISON: Brain MRI , head CT 10/29/2020 FINDINGS: There is chronic encephalomalacia in the right basal ganglia with old blood products. There is an old lacunar infarct in left caudate nucleus. There are scattered areas of nonspecific increase d T2-weighted signal intensity in the cerebral white matter. There is no intracranial hemorrhage, acu te infarction, or abnormal intracranial mass lesion. The ventricles are normal in size. There is a mu cous retention cyst in right maxillary sinus. The mastoid air cells are normal. The orbits are normal . IMPRESSION: 1. Chronic encephalomalacia in the right basal ganglia with old blood products. 2. Old lacunar infarct in left caudate nucleus. 3. Moderate nonspecific cerebral white matter disease, which likely represents chronic small vessel i schemic disease. Reviewed, dictated and finalized at location [facility] IMPRESSION: 1. Chronic encephalomalacia in the right basal ganglia with old blood products. 2. Old lacunar infarct in left caudate nucleus. 3. Moderate nonspecific cerebral white matter disease, which likely represents chronic small vessel ischemic disease.
--- NOTE | 2020-10-29 16:32 | ECG_ITS ---
Measurements Intervals [place] Rate: 64 P: 55 NV: 198 QRS: -28 QRSD: 96 T: 36 QT: 409 QTc: 423 Interpretive Statements SINUS RHYTHM ATRIAL PREMATURE COMPLEXES EARLY PRECORDIAL R/S TRANSITION BORDERLINE T WAVE ABNORMALITY- INFERIOR LEADS BASELINE ARTIFACT- I, III, AVL, AVF, V4 BORDERLINE ECG Electronically Signed On 10-29-2020 20:30:42 EXTENSION COURSE COORDINATOR by Nnamdi Summers D.O.
--- NOTE | 2020-10-29 16:40 | ED.GENADULT ---
HPI - General Adult General Chief complaint: Weakness Stated complaint: weakness, incont. Time Seen by Provider: 10/29/20 16:30 Source: patient History of Present Illness HPI narrative: Patient is a 65 y/o male complaining of weakness and unable to get out bed when he woke up this morning around 5:00 AM. He states that he was fine when he went to sleep around 9:00 PM. He states that he is usually able to walk without assistance, but he is not able to walk today. He has no headache, neck pain or back pain. Related Data Home Medications Medication Instructions Recorded Confirmed amlodipine 10 mg PO DAILY 01/31/20 01/31/20 aripiprazole 15 mg PO HS 01/31/20 01/31/20 atorvastatin 20 mg PO HS 01/31/20 01/31/20 carvedilol 25 mg PO BID 01/31/20 01/31/20 clonidine HCl 0.1 mg PO BID 01/31/20 01/31/20 ergocalciferol (vitamin D2) 1,250 mcg PO MONTHLY 01/31/20 01/31/20 [Vitamin D2] famotidine 20 mg PO DAILY 01/31/20 01/31/20 furosemide 20 mg PO 2XW 01/31/20 01/31/20 hydralazine 100 mg PO TID 01/31/20 01/31/20 hydrochlorothiazide 25 mg PO DAILY 01/31/20 01/31/20 mirtazapine 15 mg PO HS 01/31/20 01/31/20 ondansetron HCl 8 mg PO Q6H PRN 01/31/20 01/31/20 potassium chloride [Klor-Con 10] 20 meq PO BID 01/31/20 01/31/20 sertraline 200 mg PO DAILY 01/31/20 01/31/20 Allergies Allergy/AdvReac Type Severity Reaction Status Date / Time No Known Allergies Allergy Verified 10/29/20 16:39 Review of Systems Constitutional: Constitutional: Denies chills, Denies fever(s), Denies headache(s) and Denies weakness Eyes: Eyes: Denies blurry vision ENT: Denies headache(s) and Denies neck pain Cardiovascular: Cardiovascular: Denies chest pain and Denies dyspnea Respiratory: Respiratory: Denies cough and Denies dyspnea Gastrointestinal: Gastrointestinal: Denies abdominal pain, Denies diarrhea, Denies nausea and Denies vomiting Genitourinary: Genitourinary: Denies hematuria and Denies dysuria Musculoskeletal: Musculoskeletal: Denies back pain and Denies neck pain Neurologic: Denies headache(s) and Reports weakness PMFSH Past Medical History Medical History (Updated 10/29/20 @ 22:29 by Mckenzie Redmond MD) Cerebral hemorrhage Intercranial hemorrhage CHF (congestive heart failure) Unspecified type Chronic kidney disease Stage III CVA (cerebral vascular accident) Bilateral basal ganglia infarcts noted on CT Depression Diabetes mellitus Dyslipidemia Essential hypertension GERD (gastroesophageal reflux disease) Surgical History Surgical History No significant past surgical history Family History Family History Unknown Family history unknown Patient is unable to provide details due to his memory loss. Social History Social History Social History: Code status: Full code The patient does not have a durable power of workers compensation attorney or surrogate decision maker. Smoking packs per day: 1 Smoking cigarettes per day: 20.0 Years smoked: 44 Smoking pack-years: 44.00 Smoking status: Former smoker Additional smoking assessment comments: He smoked 1 pack of cigarettes per day from the age of [age]. Alcohol intake: former Substance use: unknown Additional living arrangements comments: Patient is a resident at [facility]. He states that he has been at the group home for 3 years. He reports that he has been for about 4 years. He denies having any children. Gender identity (if verbalized by the patient): Male Spiritual care concerns: No Exam Const: General: no acute distress and well developed Orientation/consciousness: oriented to person, oriented to place, oriented to time and patient oriented x3 HENMT: Head: normocephalic Ears: external ears normal General nose exam: Normal external nose present Eyes: General: charlotte
--- NOTE | 2020-10-29 17:00 | PC.NURSE ---
Pt states he is unable to provide a urine sample at this time
[2020-10-29 17:06] LABS: Basophils Percent Auto 0.4 % (0.2-1.2); Eosinophils Absolute Auto 0.3 K/mm3 (0-0.3); Eosinophils Percent Auto 3.3 % (0-4.4); Immature Granulocyte Absolute 0.01 K/mm3 (0.00-0.031); Immature Granulocyte Percent A 0.1 % (0-0.5); Lymphocytes Absolute Auto 1.14 K/mm3 (0.9-3.2); Lymphocytes Percent Auto 14.4 % (18.3-44.2); Mean Corpuscular HGB Conc 32.4 g/dl (32-36); Mean Corpuscular Volume 95.6 fl (80-100); Mean Platelet Volume 11.2 fl (7.4-10.4); Monocytes Absolute Auto 0.9 K/mm3 (0.1-0.6); Monocytes Percent Auto 10.7 % (2.6-8.5); Neutrophils Absolute Auto 5.6 K/mm3 (1.3-6.7); Neutrophils Percent Auto 71.1 % (45.5-73.1); Platelet Count Result 224 k/mm3 (150-375); Red Blood Count 3.87 M/mm3 (4.6-6.20); Red Cell Distribution Width 14.1 % (11.5-14.5); White Blood Count 7.9 K/mm3 (4.5-10.0)
[2020-10-29 17:14] LABS: Alanine Aminotransferase 19 U/L (4-50); Albumin Level 3.9 g/dL (3.5-5.1); Alkaline Phosphatase 83 U/L (38-126); Anion Gap 7 mmol/L (8-16); Aspartate Amino Transferase 32 U/L (17-59); Bilirubin,Total 0.6 mg/dL (0.2-1.3); Blood Urea Nitrogen 31 mg/dL (9-20); Calcium 8.7 mg/dL (8.4-10.2); Carbon Dioxide 30 mmol/L (22-30); Chloride 105 mmol/L (98-107); Estimated CRCL calculation 38 ml/min; Estimated Glomerular Filt Rate 27; Glucose 98 mg/dL (75-110); Potassium 2.9 mmol/L (3.4-5.0); Sodium 142 mmol/L (137-145)
--- NOTE | 2020-10-29 17:45 | PC.NURSE ---
Pt unable to provide urine sample
[2020-10-29 18:03] LABS: Add Urine Microscopic? NO; Appearance Urine Clear (Clear); Bilirubin Urine Negative (Negative); Blood Urine Negative (Negative); Color Urine Yellow (Yellow); Glucose Urine UA Negative (Negative); Ketones Urine Negative (Negative); Leukocyte Esterase Ur Negative LEU/UL (Negative); Nitrate Urine Negative (Negative); Protein Urine Negative (Negative); Specific Grav Ur 1.017 (1.001-1.035); Urobilinogen Urine Negative mg/dL (<2.0)
[2020-10-29] MEDS: SODIUM CHLORIDE 0.9% IV 1,000 ML 999 ML IV CONT (18:50)
[2020-10-29] MEDS: POTASSIUM CHLORIDE 20 MEQ TABLET 40 MEQ PO (18:50)
--- NOTE | 2020-10-29 20:51 | PM.IMHP ---
H&P: HPI History of Present Illness Date/Time: 10/29/20 20:51 Chief Complaint: Woke up with lower extremity weakness and ambulatory dysfunction Narrative: This is a 65 year old Diabetic male with known history of previous hemorrhagic CVA, CKD stage III, and CHF who presented to the hospital from the [facility] center secondary to inability to walk today. Apparently the patient was unable to get out of bed this morning and has had lower extremity weakness since then. He is known to walk normally and yesterday had no issues. Today he complains of being too weak to get up. He denies any back pain or discomfort when trying to move his legs. He also denies any saddle anesthesia or lower extremity numbness or tingling. He does however report urinary incontinence today which is new for him and he has not had any urinary incontinence for years. He denies any fevers, chills, headache, blurry vision, double vision, facial droop, head trauma, loss of consciousness, cough, nausea, vomiting, chest pain, back pain, abdominal pain, dysuria, hematuria, diarrhea, rectal bleeding, LE swelling, or other focal deficits. He also denies any recent night sweats, fevers, weight loss, or history of cancer. The patient was evaluated in the ER and Brain CT was negative for any acute pathology. We have been asked to admit the patient to the hospital for his LE weakness and ambulatory dysfunction. He smoked cigarettes chronically up until last year. No other complaints tonight. Review of Systems Review of Systems: All systems reviewed & are unremarkable except as noted in HPI and below PMFSH Past Medical History Medical History Cerebral hemorrhage Intercranial hemorrhage CHF (congestive heart failure) Unspecified type Chronic kidney disease Stage III CVA (cerebral vascular accident) Bilateral basal ganglia infarcts noted on CT Depression Diabetes mellitus Dyslipidemia Essential hypertension GERD (gastroesophageal reflux disease) Surgical History Surgical History No significant past surgical history Family History Family History Unknown Family history unknown Patient is unable to provide details due to his memory loss. Social History Social History Social History: Code status: Full code The patient does not have a durable power of deputy attorney general or surrogate decision maker. Smoking packs per day: 1 Smoking cigarettes per day: 20.0 Years smoked: 44 Smoking pack-years: 44.00 Smoking status: Former smoker Tobacco type: cigarettes Additional smoking assessment comments: He smoked 1 pack of cigarettes per day from the age of [age]. Alcohol intake: former Substance use: unknown Additional living arrangements comments: Patient is a resident at [facility]. He [facility] that [facility]. He reports that he has been for about 4 years. He denies having any children. Gender identity (if verbalized by the patient): Male Spiritual care concerns: No Meds Home Medications and Allergies Home Medications Medication Instructions Recorded Confirmed Type amlodipine 10 mg PO DAILY 01/31/20 10/29/20 History aripiprazole 15 mg PO HS 01/31/20 10/29/20 History atorvastatin 20 mg PO HS 01/31/20 10/29/20 History carvedilol 25 mg PO BID 01/31/20 10/29/20 History clonidine HCl 0.1 mg PO BID 01/31/20 10/29/20 History ergocalciferol (vitamin D2) 1,250 mcg PO MONTHLY 01/31/20 10/29/20 History [Vitamin D2] famotidine 20 mg PO DAILY 01/31/20 10/29/20 History furosemide 20 mg PO 2XW 01/31/20 10/29/20 History hydralazine 100 mg PO TID 01/31/20 10/29/20 History hydrochlorothiazide 25 mg PO DAILY 01/31/20 10/29/20 History mirtazapine 30 mg PO HS 01/31/20 10/30/20 History
--- NOTE | 2020-10-29 22:08 | ADMGEN ---
This patient, Stefan Stanton, was admitted to [facility] Surg Room 321-01. Patient/family oriented to hospital policies and general routines including ID bracelet, bed and alarms, visiting hours, pain management, procedures, bathroom and other care routines, personal items, smoking policy, room service/diet, and visiting hours. Information on how to activate the Rapid Response Team has been discussed. Patient/Family are encouraged to report perceived risks to care and to ask questions if they do not understand what they are told or what they should do.
[2020-10-29 23:41] LABS: Anion Gap 7 mmol/L (8-16); Blood Urea Nitrogen 32 mg/dL (9-20); Calcium 8.1 mg/dL (8.4-10.2); Carbon Dioxide 29 mmol/L (22-30); Chloride 107 mmol/L (98-107); Estimated CRCL calculation 42 ml/min; Estimated Glomerular Filt Rate 30; Glucose 161 mg/dL (75-110); Potassium 3.1 mmol/L (3.4-5.0); Sodium 143 mmol/L (137-145)
[2020-10-30] VITALS (12 sets, daily range): BP systolic 107–131; BP diastolic 65–79; PULSE 61–74; RESP 16–18; TEMP 36.4–36.5; O2SAT 94–96
[2020-10-30] MEDS: SODIUM CHLORIDE 0.9% IV 1,000 ML 75 ML IV CONT ×2 (01:10→20:47)
--- NOTE | 2020-10-30 01:45 | PC.NURSE ---
MD was notified at 0130 about patient potassium level. Order to be put in by .
[2020-10-30 06:34] LABS: Basophils Percent Auto 0.5 % (0.2-1.2); Eosinophils Absolute Auto 0.3 K/mm3 (0-0.3); Eosinophils Percent Auto 4.5 % (0-4.4); Hematocrit 35.1 % (42.0-52.0); Hemoglobin 11.4 g/dL (14.0-18.0); Immature Granulocyte Absolute 0.02 K/mm3 (0.00-0.031); Immature Granulocyte Percent A 0.3 % (0-0.5); Lymphocytes Absolute Auto 1.18 K/mm3 (0.9-3.2); Lymphocytes Percent Auto 18.3 % (18.3-44.2); Mean Corpuscular HGB Conc 32.5 g/dl (32-36); Mean Corpuscular Hemoglobin 31.1 pg (26-34); Mean Corpuscular Volume 95.9 fl (80-100); Mean Platelet Volume 11.1 fl (7.4-10.4); Monocytes Absolute Auto 0.7 K/mm3 (0.1-0.6); Monocytes Percent Auto 11.3 % (2.6-8.5); Neutrophils Absolute Auto 4.2 K/mm3 (1.3-6.7); Neutrophils Percent Auto 65.1 % (45.5-73.1); Platelet Count Result 194 k/mm3 (150-375); Red Blood Count 3.66 M/mm3 (4.6-6.20); White Blood Count 6.4 K/mm3 (4.5-10.0)
[2020-10-30 06:42] LABS: Cholesterol 105 mg/dL (0-200); HDL Direct 24 mg/dL; Triglycerides 110 mg/dL (<150)
[2020-10-30 06:53] LABS: LDL Cholesterol Direct 58 mg/dL
[2020-10-30 07:14] LABS: Anion Gap 6 mmol/L (8-16); Blood Urea Nitrogen 32 mg/dL (9-20); Calcium 8.3 mg/dL (8.4-10.2); Carbon Dioxide 29 mmol/L (22-30); Chloride 110 mmol/L (98-107); Estimated CRCL calculation 42 ml/min; Estimated Glomerular Filt Rate 30; Glucose 81 mg/dL (75-110); Sodium 145 mmol/L (137-145)
[2020-10-30 08:32] LABS: Glucose Point of Care 92 (65-105)
--- NOTE | 2020-10-30 09:27 | PCPTNOTE ---
Attempted PT evaluation this AM. Pt in MRI, will attempt again at a later time. Antoinette Lewis, SUET
[2020-10-30] MEDS: hydrALAZINE HCL 50 MG TABLET 100 MG PO ×3 (10:26→18:05)
[2020-10-30] MEDS: cloNIDine HCL 0.1 MG TABLET PO ×2 (10:27→20:46)
[2020-10-30] MEDS: FUROSEMIDE 20 MG TABLET PO (10:27)
[2020-10-30] MEDS: amLODIPine BESYLATE 5 MG TABLET 10 MG PO (10:27)
[2020-10-30] MEDS: carvediloL 25 MG TABLET PO ×2 (10:27→20:46)
[2020-10-30] MEDS: SERTRALINE HCL 50 MG TABLET 200 MG PO (10:27)
[2020-10-30] MEDS: FAMOTIDINE 20 MG TABLET PO (10:27)
[2020-10-30] MEDS: POTASSIUM CHLORIDE 20 MEQ TABLET 40 MEQ PO (11:06)
[2020-10-30 12:45] LABS: Glucose Point of Care 144 (65-105)
--- NOTE | 2020-10-30 15:04 | WPDNEURCNPN ---
Assessment and Plan Assessment and plan (1) Neurologic gait dysfunction: Code(s): R26.9 - Unspecified abnormalities of gait and mobility Status: Acute Additional Plan 65 years old with difficulties in ambulation, negative thoracic and lumbar spine CT scan except spondylosis, old strokeon MRI of the brain, known diabetic on insulin most likely ambulatory difficulties are related diabetic neuropathy I will obtain EMG and nerve conduction studies subsequently in the meantime he would benefit from the rehab Consult date: 10/30/20 Time Seen: 03:00 HPI: Stefan Stanton is a 65 year old male Has been admitted to the hospital through the emergency room with the information that [facility] to inability to walk on the day of presentation he was unable to get out of bed in the morning and has had lower extremity weakness since that usually he is able to walk normally he gave no history of associated back pain no history of saddle anesthesia or lower extremity numbness or tingling sensation he does however reported urinary incontinence was new for him where reportedly CT scan the brain was negative he was admitted to the hospital for the complaints of lower extremity weakness with ambulatory dysfunction. bilateral basal gangliar infarct on the CT scan in the past, diabetes mellitus with dyslipidemia and underlying hypertension, pertinent in medication include the CT scan of the head when he came to the emergency which documented old infarcts of the basal ganglia without acute intra cranial abnormality, subsequent MRI documented chronic encephalomalacia in the right basal ganglia with old blood products and old lacunar infarct in left caudate nucleus, thoracic and lumbar spondylosis on CT scan of the thoracic spine and lumbar spine routine blood studies unremarkable Review of Systems Review of Systems: All systems reviewed & are unremarkable except as noted in HPI and below PMFSH Past Medical History Medical History Cerebral hemorrhage Intercranial hemorrhage CHF (congestive heart failure) Unspecified type Chronic kidney disease Stage III CVA (cerebral vascular accident) Bilateral basal ganglia infarcts noted on CT Depression Diabetes mellitus Dyslipidemia Essential hypertension GERD (gastroesophageal reflux disease) Surgical History Surgical History No significant past surgical history Family History Family History Unknown Family history unknown Patient is unable to provide details due to his memory loss. Social History Social History Social History: Code status: Full code The patient does not have a durable power of marine engineering technicians or surrogate decision maker. Smoking packs per day: 1 Smoking cigarettes per day: 20.0 Years smoked: 44 Smoking pack-years: 44.00 Smoking status: Former smoker Tobacco type: cigarettes Additional smoking assessment comments: He smoked 1 pack of cigarettes per day from the age of [age]. Alcohol intake: former Substance use: unknown Additional living arrangements comments: Patient is a resident at [facility]. He states that he has been at the long term for 3 years. He reports that he has been for about 4 years. He denies having any children. Gender identity (if verbalized by the patient): Male Spiritual care concerns: No Meds Home Medications and Allergies Home Medications Medication Instructions Recorded Confirmed Type amlodipine 10 mg PO DAILY 01/31/20 10/29/20 History aripiprazole 15 mg PO HS 01/31/20 10/29/20 History atorvastatin 20 mg PO HS 01/31/20 10/29/20 History carvedilol 25 mg PO BID 01/31/20 10/29/20 History clonidine HCl 0.1 mg PO BID 01/31/20 10/29/20 History ergocal
--- NOTE | 2020-10-30 15:45 | PM.IMPN ---
Progress Note: A&P Assessment and Plan (1) Neurologic gait dysfunction: Code(s): R26.9 - Unspecified abnormalities of gait and mobility Status: Acute Assessment and Plan: MRI brain reviewed CT spine reviewed EMG and nerve conduction studies in the outpatient setting PT/OT Appreciate Neurology note (2) GERD (gastroesophageal reflux disease): Code(s): K21.9 - Gastro-esophageal reflux disease without esophagitis Status: Chronic Assessment and Plan: On Pepcid (3) Bilateral leg weakness: Code(s): R29.898 - Other symptoms and signs involving the musculoskeletal system Status: Acute Assessment and Plan: Neuropathy/Myopathy NCE/EMG Also on a statin Chronic stroke as well (4) Chronic kidney disease: Qualifiers: Chronic kidney disease stage: stage 3 (moderate) Qualified Code(s): N18.3 - Chronic kidney disease, stage 3 (moderate) Code(s): N18.9 - Chronic kidney disease, unspecified Status: Acute Assessment and Plan: Continue to monitor Likely due to hypertensive nephropathy (5) CVA (cerebral vascular accident): Qualifiers: CVA mechanism: other Qualified Code(s): I63.89 - Other cerebral infarction Code(s): I63.9 - Cerebral infarction, unspecified Status: Acute Assessment and Plan: No new strokes (6) Diabetes mellitus: Code(s): E11.9 - Type 2 diabetes mellitus without complications Status: Chronic Assessment and Plan: On no meds Diet controlled? Will obtain A1C (7) Essential hypertension: Code(s): I10 - Essential (primary) hypertension Status: Chronic Assessment and Plan: Well controlled Continue to monitor Continue home meds Subjective Date/time seen: 10/30/20 15:45 Patient states that he has difficulty walking feels weak. Review of Systems Review of Systems: Narrative: Feeling weak in his legs Constitutional: Comments: no fevers, no chills, no rigors. Cardiovascular: Comments: no chest pain. Respiratory: Comments: no sob, no cough. Gastrointestinal: Comments: no n/v/abdominal pain/diarrhea. Musculoskeletal: Musculoskeletal: Reports muscle weakness Comments: B/L LE Integumentary/Breasts: Comments: No rashes Neurologic: Reports abnormal gait Exam Narrative: Exam Narrative: Lying in bed Const: General: comfortable, no acute distress, alert, awake and other (Chronically ill looking.) Nutritional Appearance: average body habitus Orientation/consciousness: patient oriented x3 HENMT: Head: normal to inspection and normocephalic Ears: hearing grossly normal bilaterally Face and sinus: normal facial exam Eyes: General: appearance normal, both eyes and all related structures Pupils: Equal, round and reactive pupils present EOM: EOMs intact bilaterally Neck: Neck: no lymphadenopathy, supple and no JVD Resp: Effort & Inspection: normal respiratory effort and able to speak in complete sentences Auscultation: clear to auscultation bilaterally Cardio: Jugular venous distension: no JVD Rate: regular rate Rhythm: regular rhythm GI: GI Palp: Yes Soft to palpation and Yes No hepatosplenomegaly present Skin: Rashes: no rashes Wounds: no wounds Neuro: General: patient oriented x3 and CN's II-XI intact bilaterally Cranial nerves: Yes CN's II-XII intact bilaterally and Yes Equal, round and reactive pupils present Cognition (Neuro): normal cognition Speech: normal speech Gait exam (Neuro): Unable to assess gait Motor exam (neuro): 5/5 motor strength present throughout Extrem: General: no pedal edema Objective Data Vital Signs Vital Signs: Vital Signs - 24 hr 10/29/20 16:26 10/29/20 16:33 10/29/20 18:51 Temperature 98.7 F Pulse Rate 64 64 69 Respiratory Rate 18 13 Blood Pressure 131/87 132/89 Pulse Oximetry 97 98 10/29/20 19:06 10/29/20 19:15 10/29/20 19:32 Temperature Pulse Rate 60 63 62 Respiratory Rate 19 18 18
[2020-10-30 18:06] LABS: Glucose Point of Care 108 (65-105)
[2020-10-30] MEDS: ATORVASTATIN 20 MG TABLET PO (20:46)
[2020-10-30 21:28] LABS: Glucose Point of Care 148 (65-105)
[2020-10-31] VITALS (7 sets, daily range): BP systolic 114–169; BP diastolic 69–95; PULSE 64–82; RESP 16–18; TEMP 36.4–36.6; O2SAT 94–97
[2020-10-31 08:39] LABS: Glucose Point of Care 92 (65-105)
[2020-10-31] MEDS: hydrALAZINE HCL 50 MG TABLET 100 MG PO ×3 (09:02→17:23)
[2020-10-31] MEDS: amLODIPine BESYLATE 5 MG TABLET 10 MG PO (09:03)
[2020-10-31] MEDS: carvediloL 25 MG TABLET PO ×2 (09:03→21:07)
[2020-10-31] MEDS: FAMOTIDINE 20 MG TABLET PO (09:04)
[2020-10-31] MEDS: cloNIDine HCL 0.1 MG TABLET PO ×2 (09:04→21:07)
[2020-10-31] MEDS: SERTRALINE HCL 50 MG TABLET 200 MG PO (09:04)
[2020-10-31 17:49] LABS: Glucose Point of Care 111 (65-105)
[2020-10-31 17:49] LABS: Glucose Point of Care 126 (65-105)
[2020-10-31] MEDS: ATORVASTATIN 20 MG TABLET PO (21:07)
[2020-10-31 23:26] LABS: SARS-CoV-2 RNA PCR Negative
--- NOTE | 2020-11-01 04:40 | PC.NURSE ---
11/01/20 at 2130--patient refused bedside glucose test at this time. TDialRNC
[2020-11-01 05:59] VITALS: BP 148/88; PULSE 75; RESP 20; TEMP 36.2; O2SAT 96
[2020-11-01 08:09] LABS: Glucose Point of Care 99 (65-105)
[2020-11-01 08:51] VITALS: PULSE 75
[2020-11-01] MEDS: FAMOTIDINE 20 MG TABLET PO (08:51)
[2020-11-01] MEDS: cloNIDine HCL 0.1 MG TABLET PO ×2 (08:51→20:32)
[2020-11-01] MEDS: SERTRALINE HCL 50 MG TABLET 200 MG PO (08:51)
[2020-11-01] MEDS: carvediloL 25 MG TABLET PO ×2 (08:51→20:34)
[2020-11-01] MEDS: hydrALAZINE HCL 50 MG TABLET 100 MG PO ×3 (08:51→16:53)
[2020-11-01] MEDS: amLODIPine BESYLATE 5 MG TABLET 10 MG PO (08:51)
[2020-11-01 12:36] LABS: Glucose Point of Care 107 (65-105)
--- NOTE | 2020-11-01 13:57 | PM.DS ---
DS: Admitting Diagnosis Admitting Diagnosis Admitting Diagnosis: 1) Lower extremity weakness: (2) Acute on chronic renal failure: (3) Chronic anemia: (4) Diabetes mellitus: (5) Essential hypertension: (6) Dyslipidemia: . (7) GERD (gastroesophageal reflux disease): DS: Discharge Diagnosis Discharge Diagnosis (1) Neurologic gait dysfunction: Code(s): R26.9 - Unspecified abnormalities of gait and mobility Status: Acute Assessment and Plan: The patient had a stroke about a year ago and he was discharged to long term for rehabilitation apparently now patient comes back stating that he can walk. MRI of brain and spine was no significant for any acute finding. neurology was consulted patient to have electromyography studies performed in the outpatient setting (2) GERD (gastroesophageal reflux disease): Code(s): K21.9 - Gastro-esophageal reflux disease without esophagitis Status: Chronic Assessment and Plan: PPI as needed (3) Dyslipidemia: Code(s): E78.5 - Hyperlipidemia, unspecified Status: Chronic Assessment and Plan: continue statin (4) Chronic anemia: Code(s): D64.9 - Anemia, unspecified Status: Chronic Assessment and Plan: continue to monitor likely secondary to chronic kidney disease (5) Acute on chronic renal failure: Code(s): N17.9 - Acute kidney failure, unspecified; N18.9 - Chronic kidney disease, unspecified Status: Acute Assessment and Plan: patient has some elevation in his creatinine likely to be prerenal azotemia on chronic kidney disease (6) Bilateral leg weakness: Code(s): R29.898 - Other symptoms and signs involving the musculoskeletal system Status: Acute Assessment and Plan: patient would have electromyography study in the outpatient setting MRI not revealing (7) Chronic kidney disease: Qualifiers: Chronic kidney disease stage: stage 3 (moderate) Qualified Code(s): N18.3 - Chronic kidney disease, stage 3 (moderate) Code(s): N18.9 - Chronic kidney disease, unspecified Status: Acute Assessment and Plan: continue to monitor (8) CVA (cerebral vascular accident): Qualifiers: CVA mechanism: other Qualified Code(s): I63.89 - Other cerebral infarction Code(s): I63.9 - Cerebral infarction, unspecified Status: Acute Assessment and Plan: chronic continue statin (9) Diabetes mellitus: Code(s): E11.9 - Type 2 diabetes mellitus without complications Status: Chronic Assessment and Plan: continue to monitor (10) Essential hypertension: Code(s): I10 - Essential (primary) hypertension Status: Chronic Assessment and Plan: continue home meds continue to monitor (11) Encephalopathy: Code(s): G93.40 - Encephalopathy, unspecified Status: Acute Assessment and Plan: resolved DS: Summary Hospital Course Reason for hospitalization: Gait disturbance Hospital Course: this is a 65-year-old man with past medical history significant for hypertension stroke a year ago patient has been in her living in long term where he has supposedly been undergoing rehabilitative therapy however patient comes due to inability to walk. At physical exam muscle strength is 5/5 in all muscle groups. We will obtain 1 consult: With neurology patient had MRI of brain cervical spine thoracic spine lumbar spine with no findings of acute nature no demyelinating disease present, his CPK was normal. Patient will go for electromyography in the outpatient patient received fluid resuscitation. he participated in PT OT in therapy sessions he was discharged back to nursing will follow-up in outpatient setting no procedures were performed Time Spent with Patient Time attestation: Total time spent providing and/or coordinat
[2020-11-01 14:00] VITALS: BP 109/80; PULSE 61; RESP 16; TEMP 36.2; O2SAT 97
[2020-11-01 17:34] LABS: Glucose Point of Care 97 (65-105)
[2020-11-01 20:00] VITALS: PULSE 73; RESP 18; O2SAT 98
[2020-11-01] MEDS: ATORVASTATIN 20 MG TABLET PO (20:33)
[2020-11-01 20:34] VITALS: PULSE 66
[2020-11-01 21:52] VITALS: BP 114/81; PULSE 73; RESP 18; TEMP 36.3; O2SAT 98
[2020-11-01 23:09] LABS: Glucose Point of Care 101 (65-105)
[2020-11-02 05:39] VITALS: BP 140/79; PULSE 74; RESP 18; TEMP 36.9; O2SAT 96
[2020-11-02 08:00] VITALS: PULSE 75; RESP 18; O2SAT 96
[2020-11-02 08:46] LABS: Glucose Point of Care 103 (65-105)
[2020-11-02 09:00] VITALS: PULSE 75
[2020-11-02] MEDS: FAMOTIDINE 20 MG TABLET PO (09:00)
[2020-11-02] MEDS: SERTRALINE HCL 50 MG TABLET 200 MG PO (09:00)
[2020-11-02] MEDS: carvediloL 25 MG TABLET PO (09:00)
[2020-11-02] MEDS: amLODIPine BESYLATE 5 MG TABLET 10 MG PO (09:00)
[2020-11-02] MEDS: cloNIDine HCL 0.1 MG TABLET PO (09:01)
[2020-11-02] MEDS: hydrALAZINE HCL 50 MG TABLET 100 MG PO (09:01)
--- NOTE | 2020-12-14 18:12 | PM.IMPN ---
Progress Note: A&P Assessment and Plan (1) Neurologic gait dysfunction: Code(s): R26.9 - Unspecified abnormalities of gait and mobility Status: Acute Assessment and Plan: Patient will undergo nerve conduction studies in the outpatient setting (2) GERD (gastroesophageal reflux disease): Code(s): K21.9 - Gastro-esophageal reflux disease without esophagitis Status: Chronic Assessment and Plan: Continue Pepcid Continue to monitor (3) Acute on chronic renal failure: Code(s): N17.9 - Acute kidney failure, unspecified; N18.9 - Chronic kidney disease, unspecified Status: Acute Assessment and Plan: Likely secondary to the use of diuretics Holding hydrochlorothiazide Holding Lasix (4) Bilateral leg weakness: Code(s): R29.898 - Other symptoms and signs involving the musculoskeletal system Status: Acute Assessment and Plan: Patient will have nerve conduction studies in the outpatient setting (5) CVA (cerebral vascular accident): Qualifiers: CVA mechanism: other Qualified Code(s): I63.89 - Other cerebral infarction Code(s): I63.9 - Cerebral infarction, unspecified Status: Acute Assessment and Plan: Patient had a stroke about a year ago Continue aspirin Continue Lipitor (6) Essential hypertension: Code(s): I10 - Essential (primary) hypertension Status: Chronic Assessment and Plan: Continue to monitor Patient on carvedilol Subjective Date/time seen: 12/14/20 18:12 This is a late entry note patient seen and examined on 10/31/2020 Review of Systems Review of Systems: Narrative: Patient was brought from detention due to gait disturbance he denies any issues at this time Exam Narrative: Exam Narrative: Patient is laying in bed in no acute distress Const: General: comfortable, no acute distress, well developed, alert and awake Nutritional Appearance: average body habitus Orientation/consciousness: patient oriented x3 HENMT: Head: normal to inspection, normocephalic and atraumatic Ears: hearing grossly normal bilaterally Face and sinus: normal facial exam Eyes: General: appearance normal, both eyes and all related structures Pupils: Equal, round and reactive pupils present EOM: EOMs intact bilaterally Neck: Neck: full ROM, no lymphadenopathy and no JVD Thyroid: thyroid normal Lymphatic: no lymphadenopathy noted Resp: Effort & Inspection: normal respiratory effort and able to speak in complete sentences Auscultation: clear to auscultation bilaterally Cardio: Jugular venous distension: no JVD Rate: regular rate Rhythm: regular rhythm Heart sounds: S1 normal heart sound present and S2 normal heart sound present GI: GI Palp: Yes Soft to palpation and Yes No hepatosplenomegaly present : General: Yes deferred Skin: Rashes: no rashes Wounds: no wounds Neuro: General: patient oriented x3 and CN's II-XI intact bilaterally Cranial nerves: Yes CN's II-XII intact bilaterally and Yes Equal, round and reactive pupils present Cognition (Neuro): normal cognition Speech: normal speech Gait exam (Neuro): Normal gait present Motor exam (neuro): 5/5 motor strength present throughout Extrem: General: normal to inspection, full ROM, no joint enlargement and no pedal edema Objective Data Meds/Results Radiology Results: ITS Impressions Head CT 10/29/20 17:50 IMPRESSION: 1. Old infarcts of the basal ganglia without acute intracranial abnormality. 2. Age related findings. Thoracic/Lumbar Spine CT 10/29/20 21:24 IMPRESSION: 1. Mild thoracic and lumbar spondylosis without acute findings. Brain MRI 10/30/20 09:54 IMPRESSION: 1. Chronic encephalomalacia in the right basal ganglia with old blood products. 2. Old lacunar infarct in left caudate nucleus. 3. Moderate nonspecific cerebral white matter disease, which likely represents chronic small vessel ischemic disease. Lumbar Spine
== END 2020-11-02 08:45 ==
LOC: ANHED 16:45 → ANH3MEDSUR 22:29
PROVIDERS: Admitting Provider Family Medicine; Emergency Provider Emergency Medicine; Visit Provider Internal Medicine
DX: R53.1 Weakness (principal); N17.9 Acute kidney failure, unspecified; R26.9 Unspecified abnormalities of gait and mobility; I13.0 Hypertensive heart and chronic kidney disease with heart failure and stage 1 through stage 4 chronic kidney disease, or unspecified chronic kidney disease; R32 Unspecified urinary incontinence; I50.9 Heart failure, unspecified; N18.30 Chronic kidney disease, stage 3 unspecified; D64.9 Anemia, unspecified; E11.22 Type 2 diabetes mellitus with diabetic chronic kidney disease; E78.5 Hyperlipidemia, unspecified; K21.9 Gastro-esophageal reflux disease without esophagitis; M47.815 Spondylosis without myelopathy or radiculopathy, thoracolumbar region; M47.812 Spondylosis without myelopathy or radiculopathy, cervical region; Z86.73 Personal history of transient ischemic attack (TIA), and cerebral infarction without residual deficits; Z87.891 Personal history of nicotine dependence; Z79.4 Long term (current) use of insulin; Z20.822 Contact with and (suspected) exposure to COVID-19
CPT/HCPCS: 36415; 70450; 70551; 72128; 72131; 72141; 72146; 72148; 80048; 80053; 80061; 81003; 82948; 83735; 84443; 85025; 93005; 96360; 96361; 97110; 97161; 97166; 97530; 97535; 99285; A9270; C9803; G0378; J7030; U0003; U0005

== ENCOUNTER 2021-12-11 11:11 | Observation (INO) | payer OTHER, SELFPAY ==
[2021-12-11] VITALS (36 sets, daily range): BP systolic 98–178; BP diastolic 67–112; PULSE 64–84; RESP 15–22; TEMP 36.8–37.2; O2SAT 90–100; BMI 30.8
--- NOTE | ~2021-12-11 | CT_ITS ---
EXAMINATION: CTA chest PE protocol DATE: 12/11/2021 14:29 INDICATION: Chest pain. TECHNIQUE: Computed tomography angiography (CTA) of the chest was performed with 100 mL Omnipaque-350 intravenous contrast timed to evaluate the pulmonary arteries. Coronal maximum intensity projection 3D-reconstructions were created by the technologist. Automated exposure control and iterative reconst ruction technique were employed. The dose-length product was 801.91 mGy-cm. COMPARISON: Thoracic spine CT 10/29/2020 FINDINGS: There is mild emphysema. There is mild scarring at the lung apices. There is chronic right- sided pleural thickening. There are calcified pleural plaques bilaterally. There is peripheral rounde d atelectasis in right middle lobe and right lower lobe. A calcified left lung nodule and calcified l eft hilar lymph nodes are consistent with old granulomas disc disease. No pleural effusion. The heart size is normal. No pericardial effusion. There is no pulmonary embolus. There is mild thoracic spond ylosis. IMPRESSION: 1. No pulmonary embolus. 2. Chronic right-sided pleural thickening with mild peripheral rounded atelectasis in right middle lo be and right lower lobe. 3. Mild emphysema. Reviewed, dictated and finalized at location A. IMPRESSION: 1. No pulmonary embolus. 2. Chronic right-sided pleural thickening with mild peripheral rounded atelecta sis in right middle lobe and right lower lobe. 3. Mild emphysema.
--- NOTE | ~2021-12-11 | NM_ITS ---
EXAMINATION: NM ismael stress w perfusion DATE: 12/12/2021 13:05 INDICATION: Chest pain. TECHNIQUE: Rest images were obtained following intravenous administration of 11.5 mCi Tc99m tetrofosm in (Myoview). The patient was infused intravenously with Lexiscan (regadenoson). Then, 34.8 mCi Tc99m tetrofosmin (Myoview) was administered intravenously, and stress images were obtained. Data was luis nstructed into short axis and horizontal and vertical long axis SPECT images. Gated SPECT images were also obtained. COMPARISON: Chest CT 12/11/2021 FINDINGS: There is no definite reversible or fixed perfusion abnormality to suggest ischemia or infar ction. There is no segmental wall motion abnormality. Left ventricular ejection fraction measures 6 4%. IMPRESSION: 1. No definite ischemia or infarct. 2. Normal left ventricular ejection fraction measuring 64%. Reviewed, dictated and finalized at location A.
--- NOTE | ~2021-12-11 | CT_ITS ---
EXAMINATION: CT brain wo con EXAM DATE: 12/11/2021 13:46 INDICATION: Dizziness . TECHNIQUE: Spiral CT of the head was performed without contrast. Axial, coronal and sagittal images were reviewed. The dose-length product (DLP) for this examination was 681.00 mGy-cm. The exposure w as tailored according to patient size, and iterative reconstruction (ASIR) was used as additional dos e reduction technique. Comparison is made to prior examination from 10/29/2020. FINDINGS: There is an old left basal ganglia lacunar infarction. Tiny old left parietal lobe cortical infarction at the vertex. There is no acute intraparenchymal hemorrhage. No evidence of intraparenc hymal brain mass lesion. No evidence of acute infarction. Please note that initial head CT has limi chichi sensitivity for small or acute infarctions. There is moderate periventricular and subcortical hyp odensity, nonspecific but probably related to small vessel ischemic disease. There is moderate prom inence of the sulci and ventricles related to cerebral atrophy. There is intracranial carotid arter iosclerosis. There are no extra-axial collections. There is no mass effect or midline shift. The o rbits are unremarkable. Soft tissue is unremarkable. Small right maxillary sinus retention cyst. IMPRESSION: 1. Small old infarctions. 2. Chronic age related findings. Reviewed, dictated and finalized at location B.
--- NOTE | ~2021-12-11 | XR_ITS ---
EXAMINATION: XR chest 2V DATE: 12/11/2021 11:31 INDICATION: Right chest pain. Shortness of breath. TECHNIQUE: Frontal and lateral views of the chest were obtained on 3 radiographs. COMPARISON: Chest single view 10/02/2019, thoracic spine CT 10/29/2020 FINDINGS: There is chronic right-sided pleural thickening. No significant pleural effusion. There is a calcified pleural plaque at left lung base. Calcified lung nodules and calcified hilar lymph nodes are consistent with old granulomatous disease. There is mild scarring at the lung apices. There are m ild airspace opacities in right mid and lower lung zones. No pneumothorax. The heart size is normal. IMPRESSION: 1. Stable mild airspace opacities in right mid and lower lung zones, consistent with atelectasis/scar ring. Pneumonia cannot be excluded. Reviewed, dictated and finalized at location A. IMPRESSION: 1. Stable mild airspace opacities in right mid and lower lung zones, consistent with atelectasis/scarring. Pneumonia cannot be excluded.
--- NOTE | 2021-12-11 11:17 | ECG_ITS ---
Measurements Intervals [place] Rate: 80 P: 25 OR: 187 QRS: -8 QRSD: 86 T: 9 QT: 364 QTc: 420 Interpretive Statements SINUS RHYTHM NONSPECIFIC ST ABNORMALITY ABNORMAL ECG COMPARED TO ECG 10/29/2020 16:32:53 NO SIGNIFICANT CHANGES Electronically Signed On 12-11-2021 16:58:42 CDT by Preston Jung M.D.
--- NOTE | 2021-12-11 11:20 | ED.CHESTPAIN ---
HPI - Chest Pain General Chief Complaint: Chest Pain <Preston Garcia APRN - Last Filed: 12/11/21 17:04> Stated Complaint: chest pain since 0800 <Preston Garcia APRN - Last Filed: 12/11/21 17:04> Time Seen by Provider: 12/11/21 11:15 <Preston Garcia CLIENT EXPERIENCE SPECIALIST - Last Filed: 12/11/21 17:04> History of Present Illness HPI narrative: 66-year-old male with a history of hypertension and congestive heart failure presents the emergency room for evaluation of a constant retrosternal chest pressure that has been present for 3-1/2 hours. Patient was given nitro by EMS, denies changes pain. He is patient states that he was eating breakfast when the pain began. States the pain is worse with pressure is applied to the area. Denies shortness of breath, altered breathing, nausea. Patient also complains that he is dizzy. Dizziness is not worse with movement <Preston Garcia APRN - Last Filed: 12/11/21 17:04> Related Data Home Medications: Home Medications Medication Instructions Recorded Confirmed amlodipine 10 mg PO DAILY 01/31/20 10/29/20 aripiprazole 15 mg PO HS 01/31/20 10/29/20 atorvastatin 20 mg PO HS 01/31/20 10/29/20 carvedilol 25 mg PO BID 01/31/20 10/29/20 clonidine HCl 0.1 mg PO BID 01/31/20 10/29/20 ergocalciferol (vitamin D2) 1,250 mcg PO MONTHLY 01/31/20 10/29/20 [Vitamin D2] famotidine 20 mg PO DAILY 01/31/20 10/29/20 furosemide 20 mg PO 2XW 01/31/20 10/29/20 hydralazine 100 mg PO TID 01/31/20 10/29/20 hydrochlorothiazide 25 mg PO DAILY 01/31/20 10/29/20 mirtazapine 30 mg PO HS 01/31/20 10/30/20 ondansetron HCl 8 mg PO Q6H PRN 01/31/20 10/30/20 potassium chloride [Klor-Con 10] 20 meq PO BID 01/31/20 10/30/20 sertraline 200 mg PO DAILY 01/31/20 10/30/20 <Perston Garcia APRN - Last Filed: 12/11/21 17:04> Allergies/Adverse Reactions: Allergies Allergy/AdvReac Type Severity Reaction Status Date / Time No Known Allergies Allergy Verified 10/29/20 16:39 <Preston Garcia APRN - Last Filed: 12/11/21 17:04> Review of Systems Review of Systems: CONSTITUTIONAL: Denies fever, chills, or sweats. EYES: Denies visual changes, redness, or discharge. ENT: Denies rhinorrhea, congestion, sore throat, or otalgia. CARDIOVASCULAR: Reports chest pain RESPIRATORY: Denies cough or dyspnea. GASTROINTESTINAL: Denies abdominal pain, nausea, vomiting, or diarrhea. GENITOURINARY: Denies dysuria or hematuria. SKIN: Denies rash or itching. MUSCULOSKELETAL: Denies back pain, joint pain, or myalgia. NEUROLOGIC: Reports dizziness PSYCHIATRIC: Denies anxiety or depression. <Preston Garcia APRN - Last Filed: 12/11/21 17:04> [facility]LY [facility] Past Medical History Medical History: Medical History Cerebral hemorrhage Intercranial hemorrhage CHF (congestive heart failure) Unspecified type Chronic kidney disease Stage III CVA (cerebral vascular accident) Bilateral basal ganglia infarcts noted on CT Depression Diabetes mellitus Dyslipidemia Essential hypertension GERD (gastroesophageal reflux disease) <Preston Garcia APRN - Last Filed: 12/11/21 17:04> Surgical History Surgical History: Surgical History No significant past surgical history <Preston Garcia APRN - Last Filed: 12/11/21 17:04> Family History Family History: Family History (Updated 12/11/21 @ 16:09 by Agustina Bartholomew MD) Unknown No problems noted. Father Acute myocardial infarction <Preston Garcia APRN - Last Filed: 12/11/21 17:04> Social History Social History: Social History Social History: Code status: Full code The patient does not have a durable power of title attorney or surrogate decision maker. Smoking packs per day: 1 Smoking cigarettes per day: 20.0 Years smoked: 44 Smoking pack-years: 44.00 Smoking status:
[2021-12-11 11:40] LABS: Basophils Percent Auto 0.2 % (0.2-1.2); Eosinophils Absolute Auto 0.1 K/mm3 (0-0.3); Hematocrit 38.6 % (42.0-52.0); Hemoglobin 12.3 g/dL (14.0-18.0); Immature Granulocyte Absolute 0.04 K/mm3 (0.00-0.031); Immature Granulocyte Percent A 0.3 % (0-0.5); Lymphocytes Absolute Auto 0.74 K/mm3 (0.9-3.2); Lymphocytes Percent Auto 5.1 % (18.3-44.2); Mean Corpuscular HGB Conc 31.9 g/dl (32-36); Mean Corpuscular Hemoglobin 31.1 pg (26-34); Mean Corpuscular Volume 97.5 fl (80-100); Mean Platelet Volume 9.9 fl (7.4-10.4); Monocytes Absolute Auto 1.3 K/mm3 (0.1-0.6); Monocytes Percent Auto 9.1 % (2.6-8.5); Neutrophils Absolute Auto 12.4 K/mm3 (1.3-6.7); Neutrophils Percent Auto 84.3 % (45.5-73.1); Platelet Count Result 238 k/mm3 (150-375); Red Blood Count 3.96 M/mm3 (4.6-6.20); Red Cell Distribution Width 14.5 % (11.5-14.5); White Blood Count 14.7 K/mm3 (4.5-10.0)
[2021-12-11 11:51] LABS: Alanine Aminotransferase 16 U/L (4-50); Albumin Level 4.1 g/dL (3.5-5.1); Alkaline Phosphatase 88 U/L (38-126); Anion Gap 7 mmol/L (8-16); Aspartate Amino Transferase 23 U/L (17-59); Bilirubin,Total 0.7 mg/dL (0.2-1.3); Blood Urea Nitrogen 23 mg/dL (9-20); Calcium 8.5 mg/dL (8.4-10.2); Carbon Dioxide 32 mmol/L (22-30); Chloride 102 mmol/L (98-107); Estimated CRCL calculation 44 ml/min; Estimated Glomerular Filt Rate 36; Glucose 93 mg/dL (65-110); Lipase 54 U/L (23-300); Potassium 3.2 mmol/L (3.4-5.0); Sodium 141 mmol/L (137-145)
[2021-12-11 12:02] LABS: Troponin I < 0.012 ng/mL (0.000-0.034)
[2021-12-11 12:05] LABS: Prothrombin Time 13.2 Seconds (11.1-14.7)
[2021-12-11 12:06] LABS: Partial Thromboplastin Time 33.1 SECONDS (22.3-36.8)
[2021-12-11] MEDS: KETOROLAC 30 MG/ML VIAL (*BKC) IV PUSH (12:10)
[2021-12-11 12:36] LABS: NT Pro B Type Natriuretic Pept 817 pg/mL (5-100)
[2021-12-11] MEDS: BELLADONNA ALK/PHENOB ELIX 10 ML, MAG HYDROX/ALUMINUM HYD/SIMETH 30 ML, LIDOCAINE HCL 2... PO (13:36)
[2021-12-11 14:06] LABS: D Dimer 1.12 ug/mL (<0.48)
[2021-12-11 14:51] LABS: Troponin I < 0.012 ng/mL (0.000-0.034)
[2021-12-11 15:26] LABS: SARS-CoV-2 RNA PCR Negative
--- NOTE | 2021-12-11 15:46 | PM.IMHP ---
H&P: HPI History of Present Illness Date/Time: 12/11/21 15:46 66 yr old man with morbid obesity, T2DM, hypertension, CKD stage 3, schizophrenia, history of CVA, chronic CHF and depression who presented to the ED with chest pain that started around 0800 today during breakfast today. He endorsed it to be central, constant since 0800, non radiating, rated a 4/10 and denies previous history of similar complains. He denies associated dyspnea but endorsed lightheadedness she he sat up to go to CT while in the ED. Work up in the ED reported negative troponin X2. The patient was placed in observation on telemetry for chest pain r/o. Chief Complaint: Chest pain Review of Systems Constitutional: Constitutional: Reports no additional constitutional complaints Eyes: Eyes: Reports as per HPI and Reports no additional eye complaints Cardiovascular: Cardiovascular: Reports as per HPI, Reports chest pain, Denies edema, Denies leg edema, Reports lightheadedness, Denies palpitations, Denies dyspnea, Denies dyspnea on exertion and Denies orthopnea Respiratory: Respiratory: Reports as per HPI, Reports no additional respiratory complaints, Denies cough and Denies dyspnea Gastrointestinal: Gastrointestinal: Denies abdominal pain, Denies hematochezia, Denies constipation, Denies diarrhea and Denies nausea Genitourinary: Genitourinary: Reports no additional male genitourinary complaints, Denies dysuria, Denies nocturia, Denies urinary frequency and Denies urinary urgency Musculoskeletal: Musculoskeletal: Reports no additional musculoskeletal complaints, Denies muscle cramps and Denies numbness Psychiatric: Psychiatric: Denies visual hallucinations and Denies hallucinations PMFSH Past Medical History Medical History Cerebral hemorrhage Intercranial hemorrhage CHF (congestive heart failure) Unspecified type Chronic kidney disease Stage III CVA (cerebral vascular accident) Bilateral basal ganglia infarcts noted on CT Depression Diabetes mellitus Dyslipidemia Essential hypertension GERD (gastroesophageal reflux disease) Surgical History Surgical History No significant past surgical history Family History Family History (Updated 12/11/21 @ 16:09 by Agustina Bartholomew MD) Unknown No problems noted. Father Acute myocardial infarction Social History Social History Social History: Code status: Full code The patient does not have a durable power of musical string maker or surrogate decision maker. Smoking packs per day: 1 Smoking cigarettes per day: 20.0 Years smoked: 44 Smoking pack-years: 44.00 Smoking status: Former smoker Tobacco type: cigarettes Additional smoking assessment comments: He smoked 1 pack of cigarettes per day from the age of [age]. Alcohol intake: former Alcohol use details: He used to drink alcohol on occasion. He denies any history of alcoholism. Substance use: unknown Additional living arrangements comments: Patient is a resident at [facility]. He states that he has been at the correction for 3 years. He reports that he has been for about 4 years. He denies having any children. Gender identity (if verbalized by the patient): Male Spiritual care concerns: No Meds Home Medications and Allergies Home Medications Medication Instructions Recorded Confirmed Type amlodipine 10 mg PO DAILY 01/31/20 10/29/20 History aripiprazole 15 mg PO HS 01/31/20 10/29/20 History atorvastatin 20 mg PO HS 01/31/20 10/29/20 History carvedilol 25 mg PO BID 01/31/20 10/29/20 History clonidine HCl 0.1 mg PO BID 01/31/20 10/29/20 History ergocalciferol (vitamin D2) 1,250 mcg PO MONTHLY 01/31/20 10/29/20 History [Vitamin D2] famotidine 20 mg PO DAILY 01/31/20 10/29/20 History furosemide 20 mg PO 2XW 01/31/2010/29
[2021-12-11 16:10] LABS: Appearance Urine Clear (Clear); Bilirubin Urine 1+ (Negative); Blood Urine Negative (Negative); Color Urine Yellow (Yellow); Glucose Urine UA Trace mg/dL (Negative); Ketones Urine Negative (Negative); Leukocyte Esterase Ur Negative LEU/UL (Negative); Nitrate Urine Negative (Negative); Protein Urine Trace mg/dL (Negative); pH Urine 5.5 (5.0-9.0)
[2021-12-11] MEDS: KCL 40 MEQ/WATER 100 ML 100 ML 25 ML IVPB (16:13)
[2021-12-11 16:20] LABS: Mucus Urine Rare /lpf; WBC Urine 0-3 /hpf
[2021-12-11 16:22] LABS: Add Urine Microscopic? YES
--- NOTE | 2021-12-11 17:26 | ADMGEN ---
This patient, Stefan Stanton, was admitted to Medical Room 258-01. Patient/family oriented to hospital policies and general routines including ID bracelet, bed and alarms, visiting hours, pain management, procedures, bathroom and other care routines, personal items, smoking policy, room service/diet, and visiting hours. Information on how to activate the Rapid Response Team has been discussed. Patient/Family are encouraged to report perceived risks to care and to ask questions if they do not understand what they are told or what they should do.
[2021-12-11] MEDS: FUROSEMIDE INJ 40 MG/4 ML VIAL 20 MG IV PUSH (17:55)
[2021-12-11 18:19] LABS: Troponin I < 0.012 ng/mL (0.000-0.034)
[2021-12-11] MEDS: NITROGLYCERIN SL 0.4 MG TABLET SUBLINGUAL ×3 (18:34→18:56)
[2021-12-11 21:03] LABS: Glucose Point of Care 136 mg/dl (65-105)
[2021-12-12] VITALS (17 sets, daily range): BP systolic 111–153; BP diastolic 65–98; PULSE 65–85; RESP 16–20; TEMP 36–37.1; O2SAT 94–99
--- NOTE | 2021-12-12 | ECHO_ITS ---
Patient Info Name: Stefan Stanton Age: 66 years : 1955 Gender: Male Ht: 77 in Wt: 254 lbs BSA: 2.52 m2 HR: 69 bpm BP: 145 / 95 mmHg Heart Rhythm: Sinus Rhythm Technical Quality: Fair Exam Date: 12/12/2021 9:21 AM Exam Location: [facility] Pulmonary Patient Status: Outpatient Admit Date: 12/11/2021 Staff Ordering Physician: Agustina Bartholomew MD Clinical Audiologist: Britt Yoon RDCS Attending Provider: Mary Gregg MD Referring Physician: [facility] ; Exam Type: CA echo dop color flow w con Study Info Indications - chest pain Complete two-dimensional, color flow and Doppler transthoracic echocardiogram is performed with contrast to opacify the left ventricle and to improve the deliniation of the left ventricle endocardial borders. Contrast/Agitated Saline Contrast/Ag. Saline: Definity Amount: 2.00 ml Administered By: Britt Yoon RDCS Existing IV Access: Yes IV Access Condition: patent with no signs of infiltration Summary 1. Left ventricular chamber dimension is normal. 2. Definity contrast administered improved wall motion interpretation. 3. Left ventricular systolic function is normal, estimated at 60-65%. 4. There is mildly increased left ventricular wall thickness. 5. The left ventricular diastolic function is grade I diastolic dysfunction. 6. No pulmonary hypertension, estimated pulmonary arterial systolic pressure is 28 mmHg. Left Ventricle Definity contrast administered improved wall motion interpretation. Left ventricular chamber dimension is normal. Left ventricular systolic function is normal, estimated at 60-65%. There is mildly increased left ventricular wall thickness. The left ventricular diastolic function is grade I diastolic dysfunction. E/e' tissue doppler is not done. Right Ventricle Right ventricular chamber dimension is normal. Right ventricular systolic function is normal. Left Atria Left atrial chamber dimension is normal. Right Atria Right atrial chamber dimension is normal. Aortic Valve The aortic valve is trileaflet. There is no aortic valve stenosis. There is no aortic valve regurgitation. Pulmonic Valve There is no pulmonic regurgitation. Mitral Valve There is no mitral valve stenosis. There is no mitral valve regurgitation. Tricuspid Valve There is no tricuspid valve regurgitation. No pulmonary hypertension, estimated pulmonary arterial systolic pressure is 28 mmHg. Pericardium/Pleural There is no pericardial effusion. Inferior Vena Cava Normal inferior vena cava with >50% collapse upon inspiration consistent with normal right atrial pressure, 5 mmHg. Aorta The aortic root size at the sinus of Valsalva is normal. Left Ventricular Outflow Tract Name Value Normal LVOT 2D LVOT Diameter 2.03 cm LVOT Doppler LVOT Peak Gradient 3 mmHg LVOT Mean Gradient 1 mmHg LVOT VTI 16.46 cm LVOT VTI/AV VTI Ratio 0.73 LVOT Stroke Volume
[2021-12-12 06:16] LABS: Triglycerides 105 mg/dL (<150)
[2021-12-12 06:24] LABS: Anion Gap 7 mmol/L (8-16); Blood Urea Nitrogen 30 mg/dL (9-20); Calcium 8.1 mg/dL (8.4-10.2); Carbon Dioxide 31 mmol/L (22-30); Chloride 102 mmol/L (98-107); Estimated CRCL calculation 41 ml/min; Estimated Glomerular Filt Rate 29; Glucose 93 mg/dL (65-110); Magnesium 2.1 mg/dL (1.6-2.3); Potassium 2.9 mmol/L (3.4-5.0); Sodium 140 mmol/L (137-145)
[2021-12-12 06:27] LABS: LDL Cholesterol Direct 68 mg/dL
[2021-12-12 06:46] LABS: Hemoglobin A1C 5.1 % (<5.7)
[2021-12-12 07:55] LABS: Glucose Point of Care 92 mg/dl (65-105)
--- NOTE | 2021-12-12 08:42 | PM.IMPN ---
Progress Note: A&P Additional Plan (1) Atypical chest pain: Code(s): R07.89 - Other chest pain Status: Acute Assessment and Plan: monitoring on telemetry. negative troponin x2 improved with tylenol PRN (not changed/ improved by NTG SL) Lexiscan done on 12/12/21 and was reported as negative awaiting TTE. PO pantoprazole 40g started for possible gastritis. NTG SL PRN (2) Acute hypokalemia:worsened Code(s): E87.6 - Hypokalemia Status: Acute Assessment and Plan: K of 2.9 today managed with IV KCl 40meq once and restarted home PO KCl recheck BMP tomorrow. (3) Leukocytosis: stable Code(s): D72.829 - Elevated white blood cell count, unspecified Status: Acute Assessment and Plan: presenting WBC of 14.7 review of system is negative. monitor closely. (4) MANUEL on Chronic kidney disease: Qualifiers: Chronic kidney disease stage: stage 3 (moderate) Qualified Code(s): N18.3 - Chronic kidney disease, stage 3 (moderate) Code(s): N18.9 - Chronic kidney disease, unspecified Status: Acute Assessment and Plan: -creatinine increased to 2.3 from 1.9 -likely related to IV furosemide given yesterday. -hold furosemide today. -follow up BMP tomorrow. (5) Acute on chronic diastolic CHF (congestive heart failure): Code(s): I50.33 - Acute on chronic diastolic (congestive) heart failure Status: Acute Assessment and Plan: presenting BNP elevated at 817. patient is morbidly obese so BNP is likely higher than reported. managed with IV furosemide 20mg BID, but will hold it given new MANUEL. check BMP tomorrow. (6) Lightheadedness: Code(s): R42 - Dizziness and giddiness Status: Acute Assessment and Plan: r/o orthostatic hypotension. check orthostatics q shift. monitor on telemetry fall precautions. Subjective Date/time seen: 12/12/21 08:42 Taken for stress test. Objective Data Vital Signs Vital Signs: Vital Signs - 24 hr 12/11/21 11:12 12/11/21 11:15 12/11/21 11:31 Temperature 98.3 F Pulse Rate 80 75 Respiratory Rate 18 19 Blood Pressure 120/85 120/85 Pulse Oximetry 95 94 96 12/11/21 11:33 12/11/21 11:45 12/11/21 11:53 Temperature Pulse Rate 74 75 76 Respiratory Rate 17 21 H Blood Pressure 112/67 Pulse Oximetry 95 94 12/11/21 12:12 12/11/21 12:15 12/11/21 12:16 Temperature Pulse Rate 74 71 72 Respiratory Rate 21 H 16 17 Blood Pressure 118/72 Pulse Oximetry 99 95 93 12/11/21 12:30 12/11/21 12:31 12/11/21 12:45 Temperature Pulse Rate 70 69 70 Respiratory Rate 21 H 19 22 H Blood Pressure 98/71 L Pulse Oximetry 94 94 12/11/21 12:46 12/11/21 13:23 12/11/21 13:30 Temperature Pulse Rate 69 68 68 Respiratory Rate 20 20 15 Blood Pressure 117/69 Pulse Oximetry 95 95 95 12/11/21 13:31 12/11/21 13:55 12/11/21 14:00 Temperature Pulse Rate 67 64 65 Respiratory Rate 15 18 20 Blood Pressure 117/69 Pulse Oximetry 92 97 97 12/11/21 14:38 12/11/21 14:45 12/11/21 15:00 Temperature Pulse Rate 72 71 69 Respiratory Rate 15 18 18 Blood Pressure Pulse Oximetry 96 95 98 12/11/21 15:08 12/11/21 15:09 12/11/21 15:11 Temperature Pulse Rate 74 73 83 Respiratory Rate 18 19 21 H Blood Pressure 99/67 L 123/94 H Pulse Oximetry 12/11/21 15:12 12/11/21 15:15 12/11/21 15:30 Temperature Pulse Rate 73 79 71 Respiratory Rate 21 H 20 16 Blood Pressure 109/90 Pulse Oximetry 90 90 12/11/21 17:33 12/11/21 17:55 12/11/21 18:44 Temperature 98.9 F Pulse Rate 80 79 Respiratory Rate 19 Blood Pressure 178/112 H 162/112 H Pulse Oximetry 96 12/11/21 18:54 12/11/21 20:00 12/11/21 20:51 Temperature 98.5 F 98.5 F Pulse Rate 69 75 Respiratory Rate 20 20 Blood Pressure 160/110 H 138/84 126/85 Pulse Oximetry 93 100 12/11/21 20:52 12/11/21 20:53 12/11/21 20:57 Temperature 98.5 F 98.5 F Pulse Rate 84 72 Respiratory Rat
[2021-12-12] MEDS: PERFLUTREN LIPID MICROSPHERES 1.5 ML VIAL DILUTED TO 10 ML TOTAL VOLUME IV PUSH (10:04)
--- NOTE | 2021-12-12 10:04 | IVDEFINITY ---
Prior to administration of IV Definity the patient was educated on the risks and benefits of the imaging enhancing agent including potential adverse side effects. The patient verbalized understanding. Allergies were verified. No exclusion criteria were identified and at least one of the following inclusion criteria were met: 1) physician request, 2) patient technically difficult to image (per the [employer] guidelines of two or more segments not discernable within the apical view), or 3) questionable left ventricular function. ?
--- NOTE | 2021-12-12 12:00 | EST_ITS ---
Patient Info Name: Stefan Stanton Age: 66 years : 1955 Gender: Male Ht: 77 in Wt: 254 lbs BSA: 2.52 m2 Exam Date: 12/12/2021 11:32 AM Exam Location: [facility] Stress Patient Status: Inpatient Admit Date: 12/11/2021 Staff Ordering Physician: Mary Gregg MD Attending Provider: Mary Gregg MD Referring Physician: [facility] ; Exercise Technologist: Natalya Zarate RDCS Exercise Physician: Nnamdi Summers DO Exam Type: CA stress ismael w NM Study Info Indications R07.9 - Chest pain, unspecified A regadenoson stress test was performed. Summary 1. 1. Negative lexiscan stress test for ischemic ST changes by ECG criteria. 2. 2. Baseline hypertension. 3. 3. Nuclear scan to follow and will be reported separately. Please correlate with it. 4. 4. Patient informed of the above results. Protocol: Lexiscan Stress ECG Details Stage: REST Duration (min): 6 min : 39 sec HR (bpm): 66 SBP (mmHg): 176 DBP (mmHg): 105 Stage: REST Duration (min): 13 min : 56 sec HR (bpm): 69 SBP (mmHg): 176 DBP (mmHg): 105 Stage: STAGE 1 Duration (min): 0 min : 59 sec HR (bpm): 80 SBP (mmHg): 161 DBP (mmHg): 86 Stage: RECOVERY Duration (min): 1 min : 0 sec HR (bpm): 98 SBP (mmHg): 147 DBP (mmHg): 85 Stage: RECOVERY Duration (min): 2 min : 0 sec HR (bpm): 96 SBP (mmHg): 147 DBP (mmHg): 85 Stage: RECOVERY Duration (min): 3 min : 0 sec HR (bpm): 92 SBP (mmHg): 162 DBP (mmHg): 89 Stage: RECOVERY Duration (min): 4 min : 0 sec HR (bpm): 86 SBP (mmHg): 162 DBP (mmHg): 89 Stage: RECOVERY Duration (min): 4 min : 44 sec HR (bpm): 87 SBP (mmHg): 154 DBP (mmHg): 93 Rest HR: 69 bpm Peak HR: 98 bpm Rest Sys BP: 176 mmHg Peak Sys BP: 162 mmHg Max Pred HR: 155 bpm % Max Pred HR: 63 % Target HR: 132 bpm Max RPP: 15,876 bpm*mmHg Termination Reason: Completed protocol Cardiac Symptoms: Shortness of breath, Baseline chest pain 12/07 Total Time: 1 min : 0 sec Rest Curtis BP: 105 mmHg Peak Curtis BP: 89 mmHg Total Dose: 0.4 mg Resting ECG Sinus rhythm. Stress ECG No ST changes. Arrhythmias None. Report Signatures
[2021-12-12 12:34] LABS: Glucose Point of Care 88 mg/dl (65-105)
[2021-12-12] MEDS: POTASSIUM CHLORIDE INJ 40 MEQ in SODIUM CHLORIDE 0.9% IV 500 ML 130 MEQ IVPB (12:38)
--- NOTE | 2021-12-12 12:41 | PC.NURSE ---
On 12/12/21, the student, [Andrea Kiran, Reuben Crawford], provided care and completed [employer] documentation on this patient. I have reviewed the student's documentation and agree with the findings.
[2021-12-12] MEDS: POTASSIUM CHLORIDE 20 MEQ TABLET.ER 40 MEQ PO ×2 (12:42→16:07)
[2021-12-12] MEDS: ASPIRIN 81 MG ENTERIC TABLET PO (12:42)
[2021-12-12] MEDS: hydrALAZINE HCL 50 MG TABLET 100 MG PO ×2 (12:42→16:07)
[2021-12-12] MEDS: PANTOPRAZOLE 40 MG TABLET PO (12:42)
[2021-12-12] MEDS: FAMOTIDINE 20 MG TABLET PO (12:43)
[2021-12-12] MEDS: cloNIDine HCL 0.1 MG TABLET PO (12:43)
[2021-12-12] MEDS: carvediloL 25 MG TABLET PO ×2 (12:43→16:07)
[2021-12-12] MEDS: hydroCHLOROthiazide 25 MG TABLET PO (12:43)
[2021-12-12] MEDS: buPROPion HCL SR (12 HR) 150 MG TAB PO (12:43)
[2021-12-12] MEDS: ACETAMINOPHEN 325 MG TABLET 650 MG PO ×2 (12:59→18:44)
[2021-12-12] MEDS: NITROGLYCERIN SL 0.4 MG TABLET SUBLINGUAL (20:31)
[2021-12-12] MEDS: SERTRALINE HCL 50 MG TABLET 200 MG PO (20:32)
[2021-12-12] MEDS: ATORVASTATIN 20 MG TABLET PO (20:32)
[2021-12-12] MEDS: ARIPiprazole 5 MG TABLET 15 MG PO (20:32)
[2021-12-12] MEDS: MIRTAZAPINE 15 MG TABLET 45 MG PO (20:32)
[2021-12-12] MEDS: HYDROcodone/acetaminophen (*CRX) 5-325 MG TABLET 1 TAB PO (20:57)
[2021-12-13] VITALS (8 sets, daily range): BP systolic 124–156; BP diastolic 77–93; PULSE 61–79; RESP 17; TEMP 36.2; O2SAT 98–99
[2021-12-13 05:49] LABS: Anion Gap 8 mmol/L (8-16); Blood Urea Nitrogen 30 mg/dL (9-20); Calcium 8.3 mg/dL (8.4-10.2); Carbon Dioxide 28 mmol/L (22-30); Chloride 105 mmol/L (98-107); Estimated CRCL calculation 44 ml/min; Estimated Glomerular Filt Rate 32; Glucose 102 mg/dL (65-110); Potassium 3.1 mmol/L (3.4-5.0); Sodium 141 mmol/L (137-145)
--- NOTE | 2021-12-13 07:37 | PM.DS ---
DS: Admitting Diagnosis Discharge Date 12/13/2021 Admitting Diagnosis Chest pain rule out Acute on Chronic diastolic CHF MANUEL Acute hypokalemia DS: Discharge Diagnosis Discharge Diagnosis (1) Atypical chest pain: Code(s): R07.89 - Other chest pain Status: Acute (2) Acute on chronic diastolic CHF (congestive heart failure): Code(s): I50.33 - Acute on chronic diastolic (congestive) heart failure Status: Acute (3) Acute hypokalemia: Code(s): E87.6 - Hypokalemia Status: Acute (4) Leukocytosis: Code(s): D72.829 - Elevated white blood cell count, unspecified Status: Acute (5) Chronic kidney disease: Qualifiers: Chronic kidney disease stage: stage 3 (moderate) Qualified Code(s): N18.3 - Chronic kidney disease, stage 3 (moderate) Code(s): N18.9 - Chronic kidney disease, unspecified Status: Acute (6) Lightheadedness: Code(s): R42 - Dizziness and giddiness Status: Acute (7) Acute on chronic renal failure: Code(s): N17.9 - Acute kidney failure, unspecified; N18.9 - Chronic kidney disease, unspecified Status: Acute DS: Summary Hospital Course Hospital Course: 66 yr old man with morbid obesity, T2DM, hypertension, CKD stage 3, schizophrenia, history of CVA, chronic CHF and depression who presented to the ED with chest pain that started around 0800 today during breakfast today. He endorsed it to be central, constant since 0800, non radiating, rated a 4/10 and denies previous history of similar complains. He denies associated dyspnea but endorsed lightheadedness she he sat up to go to CT while in the ED. Work up in the ED reported negative troponin X2. The patient was placed in observation on telemetry for chest pain r/o. Problems addressed were as follows: (1) Atypical chest pain: he was monitored on telemetry. negative troponin x2 it improved with tylenol PRN (not changed/ improved by NTG SL) Lexiscan done on 12/12/21 and was reported as negative PO pantoprazole 40mg daily started for possible gastritis. (2) Acute hypokalemia: managed with IV KCl 40meq and home PO KCl discharged with PO KCl 40meq BID. (3) Leukocytosis: stable presenting WBC of 14.7 review of system was negative. monitor closely. (4) MANUEL on Chronic kidney disease: resolving creatinine improved to 2.1 as at discharge from 2.3 baseline is around 1.9 it was related to IV furosemide given and was managed by holding the furosemide. (5) Acute on chronic diastolic CHF (congestive heart failure): improved presenting BNP elevated at 817. managed with IV furosemide 20mg BID. continue home medications after discharge. (6) Lightheadedness: resolved had negative orthostatics was monitored on telemetry Time Spent with Patient Time attestation: Total time spent providing and/or coordinating discharge services: 30 minutes Exam Const: General: cooperative and comfortable Chest: Chest palpation & inspection: normal inspection of the chest Resp: Effort & Inspection: normal respiratory effort and able to speak in complete sentences Auscultation: clear to auscultation bilaterally Cardio: Rate: regular rate Rhythm: regular rhythm Heart sounds: S1 normal heart sound present and S2 normal heart sound present GI: Inspection: obesity GI Palp: No abdominal tenderness and Yes Soft to palpation Auscultation: normal bowel sounds Skin: General skin exam: normal color DS: Data Data Completed and Pending Labs on day of discharge: Labs from last 24 hours 12/13/21 12/12/21 12/12/21 05:34 12:29 07:52 Sodium 141 Potassium 3.1 L Chloride 105 Carbon Dioxide 28 Anion Gap 8 BUN 30 H Creatinine 2.10 H Estim Creat Clear Calc 44 Estimated GFR 32 L Glucose 102 POC Capillary Glucose 88 92 Calcium 8.3 L Discharge Plan Discharge Attending physician on discharge: Agustina Bartholomew Discharging Clinician: brittany Franco
[2021-12-13] MEDS: buPROPion HCL SR (12 HR) 150 MG TAB PO (08:12)
[2021-12-13] MEDS: hydrALAZINE HCL 50 MG TABLET 100 MG PO ×2 (08:12→13:16)
[2021-12-13] MEDS: POTASSIUM CHLORIDE 20 MEQ TABLET.ER 40 MEQ PO (08:12)
[2021-12-13] MEDS: cloNIDine HCL 0.1 MG TABLET PO (08:13)
[2021-12-13] MEDS: carvediloL 25 MG TABLET PO (08:13)
[2021-12-13] MEDS: PANTOPRAZOLE 40 MG TABLET PO (08:13)
[2021-12-13] MEDS: POTASSIUM CHLORIDE INJ 40 MEQ in SODIUM CHLORIDE 0.9% IV 500 ML 130 MEQ IVPB (08:13)
[2021-12-13] MEDS: FAMOTIDINE 20 MG TABLET PO (08:13)
[2021-12-13] MEDS: hydroCHLOROthiazide 25 MG TABLET PO (08:13)
[2021-12-13] MEDS: ASPIRIN 81 MG ENTERIC TABLET PO (08:13)
[2021-12-13 14:56] LABS: EDCOVIDSCREEN Negative (Negative)
== END 2021-12-13 15:54 | disposition home or self-care (01) ==
LOC: ANHED 15:08 → ANH2MED 18:21
PROVIDERS: Admitting Provider Internal Medicine; Emergency Provider Nurse Practitioner Family; Visit Provider Internal Medicine
DX: R07.89 Other chest pain (principal); E87.6 Hypokalemia; N17.9 Acute kidney failure, unspecified; D72.829 Elevated white blood cell count, unspecified; R42 Dizziness and giddiness; I13.0 Hypertensive heart and chronic kidney disease with heart failure and stage 1 through stage 4 chronic kidney disease, or unspecified chronic kidney disease; I50.33 Acute on chronic diastolic (congestive) heart failure; E11.22 Type 2 diabetes mellitus with diabetic chronic kidney disease; N18.30 Chronic kidney disease, stage 3 unspecified; E78.5 Hyperlipidemia, unspecified; K21.9 Gastro-esophageal reflux disease without esophagitis; F32.9 Major depressive disorder, single episode, unspecified; F20.9 Schizophrenia, unspecified; Z87.891 Personal history of nicotine dependence; Z86.73 Personal history of transient ischemic attack (TIA), and cerebral infarction without residual deficits; Z79.82 Long term (current) use of aspirin; Z20.822 Contact with and (suspected) exposure to COVID-19
CPT/HCPCS: 36415; 70450; 71046; 71275; 78452; 80048; 80053; 81001; 82948; 83036; 83690; 83721; 83735; 83880; 84478; 84484; 85025; 85380; 85610; 85730; 87426; 93005; 93017; 96365; 96366; 96367; 96375; 96376; 99285; A9270; A9502; C8929; C9803; G0378; J0131; J1885; J1940; J2785; J3480; J7040; Q9957; Q9967; U0003; U0005

== ENCOUNTER 2021-12-15 18:27 | Observation (INO) | payer OTHER, SELFPAY ==
[2021-12-15] VITALS (32 sets, daily range): BP systolic 113–166; BP diastolic 75–104; PULSE 61–70; RESP 17–22; TEMP 36.8–36.9; O2SAT 95–100; BMI 30.9
--- NOTE | ~2021-12-15 | XR_ITS ---
EXAMINATION: XR chest 2V Exam Date/Time: 12/16/2021 17:40 CDT CLINICAL HISTORY: cough Comparison: 12/11/2021. RESULT: Lines, tubes, and devices: None. Lungs and pleura: Clear. Stable right mid and lower lung scarring. Cardiomediastinal silhouette: Stable cardiomediastinal silhouette. Other: No acute osseous or upper abdominal finding. IMPRESSION: No acute cardiopulmonary process Reviewed, dictated and finalized at location K.
--- NOTE | ~2021-12-15 | CT_ITS ---
EXAMINATION: CT brain wo con DATE: 12/15/2021 19:44 INDICATION: head injury TECHNIQUE: Computed tomography (CT) of the head was performed without intravenous contrast. The mA wa s adjusted according to patient size. Iterative reconstruction technique was employed. The dose-lengt h product was 681.00 mGy-cm. COMPARISON: None FINDINGS: No acute intracranial hemorrhage or extra-axial fluid collection. No hydrocephalus, mass, or herniation. No acute ischemic infarct. Unremarkable dural venous sinus attenuation. No acute osseous abnormality. Right inferior maxillary sinus cyst or polyp, otherwise the aerated spaces are clear. Old left basal ganglia lacunar infarction. Old left parietal lobe infarction at the vertex. Moderate atrophy. Moderate chronic white matter change. Atherosclerotic intracranial calcifications. Scalp sca rring and calcified and noncalcified subcutaneous cysts. IMPRESSION: No acute intracranial process. Reviewed, dictated and finalized at location K.
--- NOTE | ~2021-12-15 | US_ITS ---
EXAMINATION: US arterial ankle brachial ind DATE: 12/16/2021 17:42 INDICATION: Claudication. Poor pulses. TECHNIQUE: Segmental pressures and plethysmographic and Doppler waveforms of the brachial and lower e xtremity arteries were obtained. COMPARISON: None. FINDINGS: Right and left brachial artery pressures of 139 mm Hg and 148 mm Hg, respectively, are concordant (no rmal difference <= 30 mmHg). The right ankle-brachial index (RUTH) is 1.09 (normal >= 0.9-1.0). The right great toe-brachial index (TBI) is 1.02 (normal >= 0.65). Arterial Doppler waveforms are biphasic with brisk systolic upstrokes at both the right posterior tibial and dorsalis pedis arteries. The left RUTH is 0.77. The left TBI is 0.71. Arterial Doppler waveforms are biphasic with brisk systol ic upstrokes at both the left posterior tibial and dorsalis pedis arteries. IMPRESSION: 1. Arterial occlusive disease to the left lower limb with mildly decreased left RUTH. 2. No significant arterial occlusive disease to the right lower limb with normal right RUTH and TBI. Reviewed, dictated and finalized at location A. IMPRESSION: 1. Arterial occlusive disease to the left lower limb with mildly decreased left RUTH. 2. No significant arterial occlusive disease to the right lower limb with hannah l right RUTH and TBI.
--- NOTE | ~2021-12-15 | MR_ITS ---
EXAMINATION: MR brain/brain stem wo con EXAM DATE: 12/16/2021 08:22 INDICATION: Dizziness. Headache. TECHNIQUE: Magnetic resonance imaging (MRI) of the brain/brain stem obtained without contrast. Kaylee al T1, axial diffusion, gradient echo (T2*), T1, T2, FLAIR sequences obtained. Comparison is made to prior examination from 10/30/2020. Correlation made to head CT from yesterday. FINDINGS: There is old right basal ganglia hemorrhagic infarction, was present on prior MRI. No other regions of hemosiderin deposit. There is punctate old left basal ganglia lacunar infarction. There a re no areas of restricted diffusion to suggest acute infarction. No intraparenchymal brain mass. The ventricles are normal in size. Mild to moderate microangiopathy. There are no extra-axial collection s. Flow voids are seen in the cerebral arteries on the T2-weighted sequences consistent with their e xpected patency. The orbits are unremarkable. There is left scalp sebaceous cyst. IMPRESSION: 1. Old basal ganglia infarctions. 2. Mild to moderate microangiopathy. 3. No acute findings. Reviewed, dictated and finalized at location A.
--- NOTE | 2021-12-15 18:41 | ECG_ITS ---
Measurements Intervals [place] Rate: 66 P: 19 CO: 203 QRS: -28 QRSD: 82 T: 12 QT: 407 QTc: 428 Interpretive Statements SINUS RHYTHM WITH OCCASIONAL ECTOPIC PREMATURE COMPLEXES POSSIBLE ANTERIOR MYOCARDIAL INFARCTION , PROBABLY OLD INFERIOR MYOCARDIAL INFARCTION , PROBABLY OLD WITH POSTERIOR EXTENSION Electronically Signed On 12-16-2021 11:09:22 CDT by Ibrahima Vann M.D.
[2021-12-15 18:56] LABS: Basophils Percent Auto 0.3 % (0.2-1.2); Eosinophils Absolute Auto 0.5 K/mm3 (0-0.3); Eosinophils Percent Auto 7.2 % (0-4.4); Hematocrit 37.9 % (42.0-52.0); Hemoglobin 12.1 g/dL (14.0-18.0); Immature Granulocyte Absolute 0.02 K/mm3 (0.00-0.031); Immature Granulocyte Percent A 0.3 % (0-0.5); Lymphocytes Absolute Auto 1.08 K/mm3 (0.9-3.2); Lymphocytes Percent Auto 14.9 % (18.3-44.2); Mean Corpuscular HGB Conc 31.9 g/dl (32-36); Mean Corpuscular Hemoglobin 31.7 pg (26-34); Mean Corpuscular Volume 99.2 fl (80-100); Mean Platelet Volume 10.5 fl (7.4-10.4); Monocytes Absolute Auto 0.7 K/mm3 (0.1-0.6); Monocytes Percent Auto 10.2 % (2.6-8.5); Neutrophils Absolute Auto 4.9 K/mm3 (1.3-6.7); Neutrophils Percent Auto 67.1 % (45.5-73.1); Platelet Count Result 218 k/mm3 (150-375); Red Blood Count 3.82 M/mm3 (4.6-6.20); White Blood Count 7.3 K/mm3 (4.5-10.0)
[2021-12-15 19:05] LABS: Alanine Aminotransferase 15 U/L (4-50); Albumin Level 3.9 g/dL (3.5-5.1); Alkaline Phosphatase 93 U/L (38-126); Anion Gap 7 mmol/L (8-16); Aspartate Amino Transferase 23 U/L (17-59); Bilirubin,Total 0.3 mg/dL (0.2-1.3); Blood Urea Nitrogen 25 mg/dL (9-20); Calcium 8.5 mg/dL (8.4-10.2); Carbon Dioxide 32 mmol/L (22-30); Chloride 103 mmol/L (98-107); Estimated CRCL calculation 45 ml/min; Estimated Glomerular Filt Rate 32; Glucose 121 mg/dL (65-110); Potassium 3.3 mmol/L (3.4-5.0); Sodium 142 mmol/L (137-145)
--- NOTE | 2021-12-15 19:26 | ED.FALL ---
HPI - Fall General Chief Complaint: Fall Stated Complaint: vincenzo struck his head Time Seen by Provider: 12/15/21 19:05 Source: patient, EMS, RN notes reviewed and old records reviewed Limitations: no limitations History of Present Illness HPI Narrative: 66-year-old male history of CHF, chronic kidney disease, diabetes, and CVA presenting to the [facility] for evaluation of a head injury. Patient states that he had onset of dizziness which he describes as a spinning sensation that caused him to fall and strike his head on a nightstand. Patient denies any loss of consciousness. Patient states that these dizziness is not new and he has it frequently and intermittently. Patient states symptoms of dizziness last few hours and he goes to bed and it is resolved. Patient states that he has never been treated for this dizziness and denies any diagnosis of vertigo. Patient states he does not feel like he is going to pass out. Patient does report some left-sided headache after the fall. Patient denies any other pain or injury. Patient denies any chest pain or shortness of breath patient denies any nausea vomiting or abdominal pain. Patient did have a recent hospitalization but states he has felt well since being discharged. Related Data Home Medications Medication Instructions Recorded Confirmed aripiprazole 15 mg PO HS 01/31/20 12/15/21 atorvastatin 20 mg PO HS 01/31/20 12/15/21 carvedilol 25 mg PO BID 01/31/20 12/15/21 clonidine HCl 0.1 mg PO DAILY 01/31/20 12/15/21 ergocalciferol (vitamin D2) 1,250 mcg PO MONTHLY 01/31/20 12/15/21 [Vitamin D2] famotidine 20 mg PO DAILY 01/31/20 12/15/21 furosemide 20 mg PO 2XW 01/31/20 12/15/21 hydralazine 100 mg PO TID 01/31/20 12/15/21 hydrochlorothiazide 25 mg PO DAILY 01/31/20 12/15/21 ondansetron HCl 8 mg PO Q6H PRN 01/31/20 12/15/21 sertraline 200 mg PO HS 01/31/20 12/15/21 acetaminophen 650 mg PO Q4H PRN 12/11/21 12/15/21 bupropion HCl 100 mg PO DAILY 12/11/21 12/15/21 mirtazapine 45 mg PO HS 12/11/21 12/15/21 Allergies Allergy/AdvReac Type Severity Reaction Status Date / Time No Known Allergies Allergy Verified 12/11/21 17:24 Review of Systems Review of Systems: CONSTITUTIONAL: Denies fever, chills, or sweats. EYES: Denies visual changes, redness, or discharge. ENT: Denies rhinorrhea, congestion, sore throat, or otalgia. CARDIOVASCULAR: Denies chest pain, palpitations, or edema. RESPIRATORY: Denies cough or dyspnea. GASTROINTESTINAL: Denies abdominal pain, nausea, vomiting, or diarrhea. GENITOURINARY: Denies dysuria or hematuria. SKIN: Denies rash or itching. MUSCULOSKELETAL: Denies back pain, joint pain, or myalgia. NEUROLOGIC: Describes vertigo and denies any associated numbness or weakness. All systems reviewed & are unremarkable except as noted in HPI and below PMFSH Past Medical History Medical History Cerebral hemorrhage Intercranial hemorrhage CHF (congestive heart failure) Unspecified type Chronic kidney disease Stage III CVA (cerebral vascular accident) Bilateral basal ganglia infarcts noted on CT Depression Diabetes mellitus Dyslipidemia Essential hypertension GERD (gastroesophageal reflux disease) Surgical History Surgical History No significant past surgical history Family History Family History Unknown No problems noted. Father Acute myocardial infarction Social History Social History Social History: Code status: Full code The patient does not have a durable power of criminal defense attorney or surrogate decision maker. Smoking packs per day: 0.45 Smoking cigarettes per day: 9.0 Years smoked: 40 Smoking pack-years: 18.00 Smoking status: Former smoker Tobacco type: cigarettes Second hand tobacco smoke exposure: No
[2021-12-15] MEDS: MECLIZINE HCL 25 MG TABLET PO (20:20)
[2021-12-15] MEDS: ACETAMINOPHEN 325 MG TABLET 650 MG PO (21:49)
[2021-12-15] MEDS: diazePAM (*CRX) 5 MG TABLET 2.5 MG PO (22:32)
--- NOTE | 2021-12-15 22:49 | ADMGEN ---
This patient, Stefan Stanton, was admitted to [facility] Room 300-01. Patient/family oriented to hospital policies and general routines including ID bracelet, bed and alarms, visiting hours, pain management, procedures, bathroom and other care routines, personal items, smoking policy, room service/diet, and visiting hours. Information on how to activate the Rapid Response Team has been discussed. Patient/Family are encouraged to report perceived risks to care and to ask questions if they do not understand what they are told or what they should do.
[2021-12-16] VITALS (17 sets, daily range): BP systolic 113–166; BP diastolic 80–97; PULSE 62–88; RESP 14–18; TEMP 36.7–38.6; O2SAT 96–97
[2021-12-16 00:02] LABS: Glucose Point of Care 114 mg/dl (65-105)
[2021-12-16 07:57] LABS: Anion Gap 9 mmol/L (8-16); Blood Urea Nitrogen 29 mg/dL (9-20); Calcium 8.1 mg/dL (8.4-10.2); Carbon Dioxide 29 mmol/L (22-30); Chloride 103 mmol/L (98-107); Estimated CRCL calculation 49 ml/min; Estimated Glomerular Filt Rate 36; Glucose 93 mg/dL (65-110); Potassium 3.1 mmol/L (3.4-5.0); Sodium 141 mmol/L (137-145)
[2021-12-16] MEDS: POTASSIUM CHLORIDE 20 MEQ TABLET.ER 40 MEQ PO ×2 (09:31→17:13)
[2021-12-16] MEDS: carvediloL 25 MG TABLET PO ×2 (09:31→22:17)
[2021-12-16] MEDS: buPROPion HCL SR (12HR) 100 MG TABCR PO (09:32)
[2021-12-16] MEDS: ERGOCALCIFEROL 50,000 UNIT CAPSULE 50000 UNITS PO (09:32)
[2021-12-16] MEDS: ASPIRIN 81 MG ENTERIC TABLET PO (09:32)
[2021-12-16] MEDS: hydroCHLOROthiazide 25 MG TABLET PO (09:32)
[2021-12-16] MEDS: cloNIDine HCL 0.1 MG TABLET PO (09:32)
[2021-12-16] MEDS: hydrALAZINE HCL 50 MG TABLET 100 MG PO ×3 (09:32→17:13)
[2021-12-16] MEDS: FAMOTIDINE 20 MG TABLET PO (09:32)
[2021-12-16] MEDS: POTASSIUM CHLORIDE 20 MEQ PACKET (FOR LIQUID) 40 MEQ PO (09:33)
--- NOTE | 2021-12-16 13:13 | PM.IMHP ---
H&P: HPI History of Present Illness Date/Time: 12/16/21 13:13 Chief Complaint: Dizziness Narrative: 66yo male with hx of CVA, CKD, DM and HTN who was brought in to the ED from the [place] [facility] because of dizziness. Patient states he has had dizzy spells off and on for about a year. DU resolve on their own. No treatment required. He has not seen a doctor for this. He has a history of strokes but no seizures. Sometime after dinner on the day of admission, patient was walking down the berry when he felt dizzy. He describes as a lightheadedness but not room spinning. He was able to make it to his room but then fell hitting left side of his head. He did not have loss of consciousness. There was no chest pain or palpitations. No shortness of breath. He does have a cough that is nonproductive which is new. He was recently hospitalized here [phone] for atypical chest pain, MANUEL and acute on chronic diastolic CHF. He did have a Lexiscan stress test which was negative for inducible ischemia. He did have lightheadedness at that time but orthostatics were negative. Echocardiogram showed EF of 60-65% and grade 1 diastolic dysfunction and no significant valvular disease. Patient was discharged home with the addition of Protonix but otherwise no new medications. Patient denies any changes in medications since discharge. He is up-to-date as COVID vaccine. He did not have influenza vaccine this year. He has occasional headaches but this is chronic. He denies any blurry vision or double vision. No hearing loss or tinnitus. No odynophagia or dysphagia. Mode diarrhea, constipation, nausea, vomiting abdominal pain. No dysuria, hematuria or back pain. No numbness or tingling in his extremities. No weakness in his arms and legs. He denies any joint pain related to the fall. He has diabetes but is not on medications for this and consider diet controlled. He normally walks unassisted. He does have leg pain when he walks. EMS was called and patient was brought to the emergency room for evaluation. Emergency room, patient was hemodynamically stable. Potassium slightly low at 3.3. BUN 25 and creatinine 2.1. LFTs are normal. CBC was essentially normal. COVID test was negative on 12/13/2021. Brain CT showed no acute findings. Brain MRI showed old basal ganglia infarcts but no acute findings. Patient was given meclizine and Tylenol as well as Valium. His symptoms improved but he still feels dizzy. Patient was admitted for further care Review of Systems Review of Systems: All systems reviewed & are unremarkable except as noted in HPI and below PMFSH Past Medical History Medical History Cerebral hemorrhage Intercranial hemorrhage CHF (congestive heart failure) Unspecified type Chronic kidney disease Stage III CVA (cerebral vascular accident) Bilateral basal ganglia infarcts noted on CT Depression Diabetes mellitus Dyslipidemia Essential hypertension GERD (gastroesophageal reflux disease) Surgical History Surgical History No significant past surgical history Family History Family History (Updated 12/16/21 @ 15:05 by Juan Pablo Long MD) Father Acute myocardial infarction Social History Social History (Updated 12/16/21 @ 15:08 by Juan Pablo Long MD) Social History: Patient resides at [facility]. He quit tobacco 15 months ago after smoking up to a pack a day for 46 years. No significant alcohol use. No history of alcoholism. Denies drug use. He is . He does have a son from a prior girlfriend but is not in contact with him. He nomination Navya Resendez at the [facility] to be the individual would make medical decisions for him if he is unable. He wishes to be a DNR Smoking status: Former smoker Tobacco type: cigarettes Second hand tobacco smoke exposure: No Smokin
[2021-12-16] MEDS: ACETAMINOPHEN 325 MG TABLET 650 MG PO (14:06)
[2021-12-16 15:48] LABS: Free T4 Free Thyroxine Reflex 1.36 ng/dL (0.78-2.19)
[2021-12-16 16:57] LABS: Influenza Control Positive
[2021-12-16 17:19] LABS: SARS-CoV-2 RNA PCR Negative
[2021-12-16 17:44] LABS: Total Triiodothyronine (T3) 1.03 NG/ML (0.97-1.69)
[2021-12-16 18:26] LABS: Appearance Urine Clear (Clear); Bilirubin Urine Negative (Negative); Blood Urine Negative (Negative); Color Urine Yellow (Yellow); Glucose Urine UA Negative (Negative); Ketones Urine Negative (Negative); Leukocyte Esterase Ur Negative LEU/UL (Negative); Nitrate Urine Negative (Negative); Protein Urine Negative (Negative); Urobilinogen Urine 0.2 mg/dL (<2.0); pH Urine 5.5 (5.0-9.0)
[2021-12-16 18:28] LABS: Add Urine Microscopic? NO
[2021-12-16] MEDS: SERTRALINE HCL 50 MG TABLET 200 MG PO (22:17)
[2021-12-16] MEDS: ARIPiprazole 5 MG TABLET PO (22:17)
[2021-12-16] MEDS: MIRTAZAPINE 15 MG TABLET 45 MG PO (22:17)
[2021-12-16] MEDS: ATORVASTATIN 20 MG TABLET PO (22:17)
[2021-12-16] MEDS: ARIPiprazole 10 MG TABLET PO (22:17)
[2021-12-17] VITALS (15 sets, daily range): BP systolic 129–168; BP diastolic 82–107; PULSE 55–89; RESP 14–18; TEMP 36.3–36.9; O2SAT 94–97
[2021-12-17 05:42] LABS: Basophils Percent Auto 0.4 % (0.2-1.2); Eosinophils Absolute Auto 0.4 K/mm3 (0-0.3); Immature Granulocyte Absolute 0.03 K/mm3 (0.00-0.031); Immature Granulocyte Percent A 0.4 % (0-0.5); Lymphocytes Absolute Auto 1.14 K/mm3 (0.9-3.2); Lymphocytes Percent Auto 16.7 % (18.3-44.2); Mean Corpuscular HGB Conc 32.4 g/dl (32-36); Mean Corpuscular Hemoglobin 31.3 pg (26-34); Mean Corpuscular Volume 96.6 fl (80-100); Mean Platelet Volume 10.5 fl (7.4-10.4); Monocytes Absolute Auto 0.7 K/mm3 (0.1-0.6); Monocytes Percent Auto 10.6 % (2.6-8.5); Neutrophils Absolute Auto 4.5 K/mm3 (1.3-6.7); Neutrophils Percent Auto 65.9 % (45.5-73.1); Platelet Count Result 202 k/mm3 (150-375); Red Blood Count 3.83 M/mm3 (4.6-6.20); Red Cell Distribution Width 15.1 % (11.5-14.5); White Blood Count 6.8 K/mm3 (4.5-10.0)
[2021-12-17 05:54] LABS: Anion Gap 7 mmol/L (8-16); Blood Urea Nitrogen 23 mg/dL (9-20); Calcium 8.5 mg/dL (8.4-10.2); Carbon Dioxide 28 mmol/L (22-30); Chloride 107 mmol/L (98-107); Estimated CRCL calculation 47 ml/min; Estimated Glomerular Filt Rate 34; Glucose 100 mg/dL (65-110); Magnesium 2.2 mg/dL (1.6-2.3); Phosphorus 3.8 mg/dL (2.5-4.5); Potassium 3.4 mmol/L (3.4-5.0); Sodium 142 mmol/L (137-145)
[2021-12-17] MEDS: POTASSIUM CHLORIDE 20 MEQ TABLET.ER 40 MEQ PO ×2 (08:06→16:30)
[2021-12-17] MEDS: carvediloL 25 MG TABLET PO (08:06)
[2021-12-17] MEDS: cloNIDine HCL 0.1 MG TABLET PO (08:07)
[2021-12-17] MEDS: hydroCHLOROthiazide 25 MG TABLET PO (08:07)
[2021-12-17] MEDS: FAMOTIDINE 20 MG TABLET PO (08:07)
[2021-12-17] MEDS: ASPIRIN 81 MG ENTERIC TABLET PO (08:07)
[2021-12-17] MEDS: FUROSEMIDE 20 MG TABLET PO (08:07)
[2021-12-17] MEDS: hydrALAZINE HCL 50 MG TABLET 100 MG PO ×3 (08:07→16:30)
[2021-12-17] MEDS: buPROPion HCL SR (12HR) 100 MG TABCR PO (08:07)
--- NOTE | 2021-12-17 16:25 | PM.DS ---
DS: Admitting Diagnosis Discharge Date 12/17/21 Admitting Diagnosis Dizziness DS: Discharge Diagnosis Discharge Diagnosis (1) Fever: Code(s): R50.9 - Fever, unspecified Status: Acute (2) Dizziness: Code(s): R42 - Dizziness and giddiness Status: Acute (3) Head injury: Qualifiers: Encounter type: initial encounter Qualified Code(s): S09.90XA - Unspecified injury of head, initial encounter Code(s): S09.90XA - Unspecified injury of head, initial encounter Status: Acute (4) Lightheadedness: Code(s): R42 - Dizziness and giddiness Status: Acute (5) Chronic kidney disease: Qualifiers: Chronic kidney disease stage: stage 3 (moderate) Qualified Code(s): N18.3 - Chronic kidney disease, stage 3 (moderate) Code(s): N18.9 - Chronic kidney disease, unspecified Status: Acute (6) Diabetes mellitus: Code(s): E11.9 - Type 2 diabetes mellitus without complications Status: Chronic (7) CVA (cerebral vascular accident): Qualifiers: CVA mechanism: other Qualified Code(s): I63.89 - Other cerebral infarction Code(s): I63.9 - Cerebral infarction, unspecified Status: Acute (8) PAD (peripheral artery disease): Code(s): I73.9 - Peripheral vascular disease, unspecified Status: Acute DS: Summary Hospital Course Reason for hospitalization: 66yo male with hx of CVA, CKD, DM and HTN who was brought [facility] the ED [facility] because of [facility]iness. Please see H&P for details. Hospital Course: Patient brought to the ED for complaints of dizziness and a fall. He has had dizzy spells off and on for about a year. This usually resolved on its own. He has never sought treatment for this nor has he seen a doctor. He does have a history of CVA. Patient had a dizzy spell while walking down the berry initially describes as lightheaded and later had a component room spinning sensation. He fell in his room hitting left side of his head. He did not have loss of consciousness. Patient was brought to the emergency room for evaluation. In the Emergency room, patient was hemodynamically stable. Potassium slightly low at 3.3. BUN 25 and creatinine 2.1. LFTs were normal. CBC was essentially normal. COVID test was negative on 12/13/2021. Brain CT showed no acute findings. Patient was given meclizine and Tylenol as well as Valium. His symptoms improved but he still felt dizzy. Patient was admitted for further care. Patient was placed on telemetry. No significant dysrhythmias noted. Brain MRI showed old basal ganglia infarcts but no acute findings. EKG showed normal sinus rhythm with occasional PACs and possible old anterior and inferior NV. He was just hospitalized here about 4 days prior to this admission where he had a Lexiscan stress test which showed no acute ischemic findings. After admission, patient had a fever to 101.5. Chest x-ray showed no acute cardiopulmonary disease. Urinalysis was clear. COVID swab was negative. Influenza swab was negative. White count was normal on admission and remained normal. Renal function remained stable and within his baseline for his CKD. TSH and cortisol levels are normal. We did check ABIs which showed arterial occlusive disease to the left lower limb with mildly decreased left RUTH. Patient continued to complain of dizziness. Meclizine was ordered as needed but the patient did not take any meclizine. We continued a majority of his home medications. Patient work with therapy. He was up ambulating with a walker. Discussed with therapy who stated that patient is not having any gait disturbance related to dizziness. Patient is eating and tolerating it without nausea or vomiting. He was complaining of left sided chest pain that was palpable; he states it was related to a pulled muscle when he was getting up out of the CT scanner in the ED (he is clear that this was unrelated to hi
--- NOTE | 2021-12-23 08:56 | PC.NURSE ---
Blood cx are negative.Dr. Mercedes noriega.
== END 2021-12-17 17:45 ==
LOC: ANHED 22:21 → ANH3MEDSUR 12-16 09:19
PROVIDERS: Emergency Medicine; Admitting Provider Internal Medicine; Emergency Provider Emergency Medicine; Visit Provider Internal Medicine
DX: R42 Dizziness and giddiness (principal); S09.90XA Unspecified injury of head, initial encounter; R50.9 Fever, unspecified; Z87.891 Personal history of nicotine dependence; Z20.822 Contact with and (suspected) exposure to COVID-19; N18.30 Chronic kidney disease, stage 3 unspecified; E11.22 Type 2 diabetes mellitus with diabetic chronic kidney disease; I50.9 Heart failure, unspecified; I13.0 Hypertensive heart and chronic kidney disease with heart failure and stage 1 through stage 4 chronic kidney disease, or unspecified chronic kidney disease; K21.9 Gastro-esophageal reflux disease without esophagitis; E78.5 Hyperlipidemia, unspecified; I73.9 Peripheral vascular disease, unspecified; Z86.73 Personal history of transient ischemic attack (TIA), and cerebral infarction without residual deficits
CPT/HCPCS: 36415; 70450; 70551; 71046; 80048; 80053; 80069; 81003; 82533; 82948; 83735; 84439; 84443; 84480; 85025; 87040; 87804; 93005; 93922; 97110; 97161; 97165; 99285; A9270; C9803; G0378; U0003; U0005